=== PATIENT | female | born 1980 | race Caucasian/White ===

== ENCOUNTER → 2017-04-11 17:47 | Outpatient (CLI) | payer BC, SELFPAY ==
[2017-04-11 17:50] LABS: Bacteria 0 SEEN /hpf (None Seen); Mucous, Urine 0 SEEN /hpf (<or=2+); Red Blood Cells-Urine 0 SEEN /hpf (0-5); Squamous Epithelial Cells - UA 0 SEEN /hpf (5-10)
[2017-04-11 18:27] LABS: Color, Urine Yellow (Yellow); Glucose, Dipstick Normal (Normal); Ketone-Dipstick Negative (Negative); Leukocyte Esterase-Dipstick 25 /ul (Negative); Nitrite-Dipstick Negative (Negative); Occult Blood-Urine Negative /ul (Negative); Protein-Dipstick Negative (Negative); Urine Bilirubin Dipstick Negative (Negative); Urine Clarity Clear (Clear); Urine Urobilinogen Normal (Normal)
[2017-04-11 19:05] LABS: White Blood Cells 0-5 SEEN /hpf (0-5)
== END ==
PROVIDERS: Family Provider Family Medicine; PCP Family Medicine; Visit Provider Physician Assistant Surgical
DX: R35.0 Frequency of micturition (principal)
CPT/HCPCS: 81001; 87086; 87088

== ENCOUNTER → 2017-05-01 13:56 | Outpatient (CLI) | payer BC, SELFPAY ==
--- NOTE | 2017-05-01 14:02 | US_ITS ---
US Kidney(s) complete (eg, kidneys T bladder) INDICATION: abd pain, HX of stones COMPARISON: None TECHNIQUE: Ultrasonographic grayscale and Doppler investigation of the retroperitoneum including kidneys and urinary bladder FINDINGS: The right kidney measures 13.1 x 5.9 x 4.5 cm with a 1.5 cm cortical thickness. There is no evidence of hydronephrosis, mass, or shadowing calculus. The left kidney measures 13.3 x 5.7 x 5.4 cm with a cortical thickness of 1.8 cm. There is no evidence of hydronephrosis, mass, or shadowing calculus. The urinary bladder is distended and measures 450 mL at the time of the scan. Urinary bladder wall is within normal limits. US/Kidney and Bladder IMPRESSION: Unremarkable ultrasound appearance of the kidneys. No renal stones appreciated ultrasound. Distended urinary bladder (450 mL) at the time of the exam. at 1819 Reported and signed by: Alejandra Csatelan MD Electronically Signed: Alejandra Castelan MD at 17:17 EST Tel , Service support ,
== END ==
PROVIDERS: Family Provider Family Medicine; PCP Family Medicine; Visit Provider Nurse Practitioner Adult Health
DX: R10.9 Unspecified abdominal pain (principal); Z87.442 Personal history of urinary calculi
CPT/HCPCS: 76770

== ENCOUNTER → 2017-09-03 13:00 | Outpatient (CLI) | payer BC, SELFPAY ==
--- NOTE | 2017-09-03 13:15 | RAD_ITS ---
CLINICAL HISTORY: Female, 36 years old. Frequent UTIs. PROCEDURE: Cystogram. FLUOROSCOPY TIME (if supplied): (0:26) minutes/seconds 200 mL of contrast installed into the bladder in a retrograde fashion through indwelling Fernandez catheter. The radiologist installed the contrast into the bladder. TECHNIQUE: (All elements of maximal sterile barrier technique followed, including US elements as applicable) The bladder was opacified. No abnormality is seen. There is no evidence of bladder diverticulum. No post void residual is seen. RAD/Cystography min 3 Views IMPRESSION: Unremarkable cystogram. Electronically Signed: Wagner Bell MD at 15:25 EDT Tel [phone], Service support ,
== END ==
PROVIDERS: Family Provider Family Medicine; PCP Family Medicine; Visit Provider Urology
DX: N39.0 Urinary tract infection, site not specified (principal)
CPT/HCPCS: 51600; 74430; Q9965

== ENCOUNTER 2017-10-07 05:50 | Day surgery (SDC) | payer BC, SELFPAY ==
[2017-10-07 06:10] VITALS: BP 126/80; PULSE 90; RESP 16; TEMP 36.8; O2SAT 100; BMI 31.7
[2017-10-07 06:16] LABS: Internal QC Validated? YES +Cl - CLEAR BKGD; Pregnancy, Urine Negative Negative
[2017-10-07 08:28] VITALS: BP 122/91; BP 126/80; PULSE 88; RESP 16; TEMP 36.6; O2SAT 100
[2017-10-07 08:30] VITALS: BP 119/85; BP 126/80; PULSE 89; RESP 16; O2SAT 99
[2017-10-07 08:42] VITALS: BP 120/79; BP 126/80; PULSE 86; RESP 16; TEMP 36.8; O2SAT 100
--- NOTE | 2017-10-07 08:48 | PCM.DC.URO ---
Discharge Diet: No Restrictions Discharge Activity: Return to Normal Activity, May not drive while taking narcotic pain medications. Call your doctor if you observe: Fever of 101 or Higher, Inability to urinate, Inability to have a bowel movement, Shortness of breath, Calf discomfort, Uncontrolled pain Allergies/Adverse Reactions: Allergies latex Allergy (Verified 09/30/17 10:53) Rash Medications to take at Discharge Ethinyl Estradiol/Drospirenone [Shikha 28 Tablet] 1 each PO DAILY 09/30/17 Methen/Sod Phos/Meth Blue/Hyos [Pn-Lzvyrc-Da-Hyo 1 Tablet] 1 tablet PO DAILY 09/30/17 Oxycodone HCl/Acetaminophen [Percocet 5/325] 2 tab PO Q6H PRN PRN 3 Days #10 tab 10/07/17 The following prescriptions were given: Oxycodone HCl/Acetaminophen [Percocet 5/325] 2 tab PO Q6H PRN PRN 3 Days #10 tab PRN Reason: Pain Primary Care Physician: Noah Avery MD [Primary Care Provider] - Test Results: Test results from this visit will be discussed in further detail at your follow-up appointment, if applicable. Please Follow Up With: Chaya Lucas MD - in 2 weeks, call for appt.
[2017-10-07 09:48] VITALS: BP 126/80
--- NOTE | 2017-10-07 10:09 | PCM.IMDPSTOP ---
Immediate Post-Op Note Date of Procedure: 10/07/17 Primary Surgeon/Physician: Chaya Lucas MD track service worker: Chaya Lucas Pre-Operative Diagnosis: urinary tract infection, pelvic pain Post-Operative Diagnosis: same Surgery/Procedure Performed:: cystoscopy, pelvic exam under anesthesia Description of Surgical Findings:: no ulcers, erythema, mass, foreign body. Capacity 800cc. No glomerulations. Normal pelvic exam. Estimated Blood Loss: 1cc Specimen's removed: none - Admit VTE Documentation VTE Present on Admission: Yes VTE Mechan Device Prophylaxis: SCD's VTE Pharm Prophylaxis ordered?: No Reason prophylaxis not ordered:: Treatment Not Indicated
--- NOTE | 2017-10-07 11:16 | PCM.OPRPT ---
Problem List (1) Pelvic pain Status: Acute (2) UTI (urinary tract infection) Status: Acute Qualifiers: Urinary tract infection type: acute cystitis Hematuria presence: with hematuria Qualified Code(s): N30.01 - Acute cystitis with hematuria Report of Operation Date of Procedure: 10/07/17 Pre-Operative Diagnosis: urinary tract infection, pelvic pain Post-Operative Diagnosis: same Surgery/Procedure Performed:: cystoscopy, pelvic exam under anesthesia Description of Surgical Findings:: no ulcers, erythema, mass, foreign body. Capacity 800cc. No glomerulations. Normal pelvic exam. bark tanner: Chaya Lucas Type of Anesthesia:: General Specimen's removed: none Estimated Blood Loss (mL): 1cc Description of Procedure: Patient is a 36-year-old female with severe bladder pain and urinary tract infections. After discussing the risks benefits and alternatives she agreed to proceed with further evaluation under anesthesia. Patient was taken to the operating room and placed on the operating room table anesthesia monitored the head neck area IV access and vital signs throughout the case. Once anesthesia was appropriately administered patient was placed into dorsal lithotomy position was prepped and draped in usual sterile fashion. A cystourethroscopy was then performed revealing no mass, erythema, ulceration or foreign body. The ureteral orifices were located in the correct anatomic position. The bladder was filled to capacity which was determined to be 800 cc. There were no glomerulations identified. On pelvic examination there was no prolapse identified. Her vaginal mucosa is well estrogenized. The levator musculature is somewhat tight left greater than right but with her being asleep but is difficult to tell if this is symptomatic or not. She was then awakened and taken to recovery room in good condition. There are no complications during this procedure. - Complications none - Admit VTE Documentation VTE Present on Admission: Yes VTE Mechan Device Prophylaxis: SCD's VTE Pharm Prophylaxis ordered?: No Reason prophylaxis not ordered:: Procedure Not Indicated
== END 2017-10-07 09:53 | disposition home or self-care (01) ==
LOC: SDC 05:51 → AC 05:52
PROVIDERS: Anesthesiology; Family Provider Family Medicine; PCP Family Medicine; Visit Provider Urology
PROC: 0TBB8ZX Excision of Bladder, Via Natural or Artificial Opening Endoscopic, Diagnostic (ICD-10-PCS; CPT 57410; principal; 2017-10-07 07:20)
DX: R10.2 Pelvic and perineal pain (principal); N30.01 Acute cystitis with hematuria
CPT/HCPCS: 00940; 57410; 81025; J7120; J2405

== ENCOUNTER 2018-05-16 21:09 | Inpatient (IN) | payer BC, SELFPAY ==
[2018-05-16] VITALS (8 sets, daily range): BP systolic 123–152; BP diastolic 71–96; PULSE 108–132; RESP 16–28; TEMP 36.8–37.4; O2SAT 96–100; BMI 31.9
[2018-05-16 22:21] LABS: Absolute Lymphocyte Count 1.87 X10^3/ul (0.83-4.51); Absolute Neutrophil Count 15.5 X10^3/uL (2.0-7.7); Basophil# 0.05 X10^3/uL; Basophil% 0.3 % (0-1); Eosinophil# 0.55 X10^3/uL; Eosinophils% 2.9 % (0-5); Hematocrit 41.1 % (37-47); Lymphocyte # 1.87 X10^3/ul (4.0); Lymphocyte % 9.9 % (19-41); Mean Corp Hgb Conc 34.1 g/gl (32-36); Mean Corpuscular Hgb 29.7 pg (27.0-32.0); Mean Corpuscular Volume 87.3 fL (81-99); Mean Platelet Vol. 9.9 fl (6.2-12.0); Monocyte# 0.98 X10^3/uL; Monocyte% 5.2 % (0-10); Neutrophil # 15.48 X10^3/uL (2.7-7.7); Neutrophil % 81.4 % (47-70); POSITIVE COUNT NO; POSITIVE DIFFERENTIAL NO; POSITIVE MORPHOLOGY NO; Platelet Count 239 K/mm3 (150-450); RBC Distribution Width CV 13.1 % (11.6-14.6); Red Blood Count 4.71 M/mm3 (4.2-5.4)
[2018-05-16 22:30] LABS: Anion Gap 9 (5-15); BUN 10 mg/dL (7-18); BUN/Creat Ratio 14.6 RATIO (10-20); Calcium,Total 8.4 mg/dL (8.5-10.1); Chloride 104 mmol/L (98-107); Creatinine, Serum 0.68 mg/dL (0.55-1.02); EST Glomerular Filtration Rate 103 mL/min (>60); Est Glom Filt Rate - Afr Amer 124 mL/min (>60); Estimated Creatinine Clearance 114.27 ml/min; Glucose 97 mg/dL (74-106); Potassium 3.3 mmol/L (3.5-5.1); Sodium Level 136 mmol/L (136-145)
[2018-05-16] MEDS: 0.9% Normal Saline 1,000 ML 1000 ML IV (22:30)
--- NOTE | 2018-05-16 22:52 | ED.DCSUM_ITS ---
History of Present Illness Chief Complaint: Abscess Detail of Chief Complaint: Right inguinal/labia region Informant: Patient Onset: Weeks - Redness noted 1 week ago. Patient thought it was secondary to razor burn from shaving. Context: Gradual Onset Timing: Continuous Quality: Redness, swelling and pain Location: Right groin region Current Severity: Moderate Maximum Severity: Moderate Worsened by: Probable abscess Relieved by: Nothing Associated Symptoms: Subjective fever with shaking chills and diaphoresis Narrative: Patient is a 37-year-old woman with no sniffing past medical history presents with infection right groin area. She thought this was a razor burn from shaving a week ago. She reports fever with shaking chills and diaphoresis morning. She did not take her temperature. She reports no antibiotic allergies. She has not had any to eat or drink the last 3-4 hours. She denies a traumatic fever, murmur as an adult, SPE, IV drug use or being immune suppressed. She states she had a murmur when she was a child and outgrew it. She denies dysuria, frequency, urgency or hematuria. She denies headache, photophobia, neck pain or neck stiffness. She denies shortness of breath. She does report nausea without vomiting diarrhea. Prior similar symptoms: No Recent Illness/Hospitalization: No - Past Medical History (1) Pelvic pain Status: Chronic (2) UTI (urinary tract infection) Status: Resolved Past Medical History - Allergies and Home Meds Allergies/Adverse Reactions: Allergies latex Allergy (Verified 05/16/18 21:10) Rash Primary Care Physician: Noah Avery MD [Primary Care Provider] - Prior records reviewed: Yes - Latex allergy Lives: Spouse/ Significant Other Smoking Status: Never smoker Alcohol: Rare Review of Systems General: Reports: Chills, Fever, Malaise, Subjective, Sweats. Denies: Weight loss Eyes: Denies: Visual changes - bilaterally, Blurred Vision - bilaterally, Diplopia ENT: Denies: Bilateral ear pain, Rhinorrhea, Sore throat Cardiovascular: Reports: Heart racing. Denies: Chest pain, Palpitations Respiratory: Denies: Dyspnea, Cough, Dyspnea on exertion Gastrointestinal: Denies: Abdominal pain, Nausea, Vomiting, Diarrhea, Melena, Hematochezia Genitourinary: Denies: Dysuria, Hematuria, Frequency Musculoskeletal: Reports: Myalgias. Denies: Arthralgias, Neck pain, Back pain, Extremity Pain Skin: Reports: Rash, Abscess Neurological: Denies: Headache, Weakness, Numbness Hematologic: Denies: Easy bruising, Easy bleeding Allergy: Denies: Uticaria, Swelling of the mouth, Swelling of the tongue Physical Exam Vital Signs/Narrative: Vital Signs Temp Pulse Resp BP Pulse Ox 05/16/18 22:17 119 H 05/16/18 21:10 98.3 F 126 H 16 152/92 H 98 Inital Vital Signs reviewed: Yes General: Well nourished, Well developed, No Acute Distress Head: Normocephalic, Atraumatic. Negative for: Trauma, Tenderness Eyes: Perrl, EOMI. Negative for: Pale conjunctiva, Scleral icterus ENT: Moist mucous membranes, No rhinorrhea. Negative for: TM's clear Neck: Supple, Nontender, No lymphadenopathy, No JVD Cardiovascular: Regular rhythm, No murmurs, Normal S1, Normal S2, Tachycardia Respiratory: No distress, CTA bilaterally, Chest nontender Abdomen: Soft, Nontender, Nondistended, Normal bowel sounds Back: Nontender, Normal Inspection Extremities: No edema, Tenderness Skin: Normal color, Rash. Negative for: Diaphoresis Neurological: Alert, Oriented x3, Cranial nerves II-XII grossly intact, Normal Strength, Normal Sensation Psychological: Normal affect, Normal Mood Diagnostic/Tx/Re-eval - Medical Decision Making Patient has a significant area of cellulitis above the inguinal crease on the right side involving the labia majora extending to the perineal region. There is erythema, warmth and induration. Question of fluctuance. Ultrasound indicated small fluid collection. Needle aspirate was performed and aspirated 2 cc of brown thick purulent material. Patient was informed that she would need incision and drainage of the abscess. She also was informed because of the extent of the area and the fact that she is tachycardic will obtain blood work because of concern that she will need admission to the hospital. If lactate is elevated will obtain blood cultures prior to antibiotics. Lactate is normal. She will receive 1 g of Rocephin IV piggyback. Her railroad construction director Dr. Italia Key was paged for admission Procedures Procedure(s): 1. Needle aspiration of abscess using ultrasound, 2.0 cc brown thick purulent material. 2. Patient was prepped draped sterile manner for incision and drainage of abscess. Patient was informed prior to starting the procedure if the procedure was too painful would sedate with IV anesthetic i.e. propofol. She was explained risk benefits of propofol. She was given opportunity ask questions regarding the I&D with local versus deep sedation using propofol. Her questions were answered. 3. The area was prepped draped sterile manner. Local infiltration with 4 cc of lidocaine. Incision was made. There is free flow of purulent material. Patient had significant pain and had to abort blunt dissection because of pain. She requested IV anesthetic, propofol. 4. Patient was administered a total of 200 cc of propofol. Blunt dissection was undertaken. The cavity was irrigated. Wick was placed. 5. Total time for procedure 9 minutes ED Disposition - Plan for ED Patient: Disposition: Acute Care Hospital [facility] Diagnosis: Abscess or cellulitis of groin, Sepsis Referrals: Noah Avery MD [Primary Care Provider] -
[2018-05-16 22:56] LABS: Lactic Acid 0.8 mmol/L (0.4-2.0)
[2018-05-16] MEDS: Propofol 200 MG/20 ML Vial IV BOLUS (23:03)
[2018-05-16] MEDS: HYDROmorphone 0.5 MG/0.5 ML SYRINGE IV (23:32)
[2018-05-16] MEDS: Ondansetron 4 MG/2 ML Vial IV (23:32)
[2018-05-16] MEDS: Ceftriaxone 1 GM/50 ML BAG IV (23:32)
--- NOTE | 2018-05-16 23:43 | HP.PCM_ITS ---
History and Physical Date of Admission: 05/16/18 Brooke Magana is a 36 yo,G-3 P-3 female who presented to [facility] Emergency Dept with CC of vulvar pain and an infection in the right groin area . She has had a fever and shaking chills this morning. She thought she had just injured herself shaving, but was found on the exam in the Emergency Department to have a cellulitis of the groin with fluctuance and had an Incision and drainage with wick placement. Cultures were obtained. Brooke is admitted for IV a ntibiotics and observation. ALLERGIES: Latex, Rash, Poison Alka Extract and Rash MEDICATIONS HISTORY: Current medications prescribed by our practice are: 1. None. REVIEW OF SYSTEMS: GENERAL - Denies fever, or chills SKIN - Denies skin changes EYES - Denies visual changes EARS - Denies difficulty hearing NOSE - Denies nasal congestion or bleeding MOUTH - Denies sore throat or difficulty swallowing NECK - Denies pain or swelling RESPIRATORY - Denies shortness of breath or wheezing CARDIOVASCULAR - Denies palpitations or chest pain GASTROINTESTINAL - Denies nausea, vomiting, diarrhea, constipation GENITOURINARY - pelvic pain MUSCULOSKELETAL - Denies joint or muscle pain NEUROLOGICAL - Denies localized numbness or weakness PSYCHIATRIC - Denies depression or anxiety ENDOCRINE - Denies heat or cold intolerance, weight loss or gain HEMATO-IMMUNOLOGIC - Denies excesive bleeding with cuts PAST HISTORY: Breast/Ovarian/Colon Cancers - Mother had Colon Cancer approximately age 50-60 Infections - Chicken pox Illnesses - none Accidents - None History of Abnormal PAPS - first noted more than 10 years ago-- YES Hospitalizations - Childbirth and see surgery last pap 2012; SURGICAL HISTORY: 1. 04/24/2016 Italia Key M.D. 2. [place] Teeth Removal 3. 2009 4. 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 Resp 22 Weight- 95.25 Kg. CONSTITUTIONAL - NAD, well nourished, and well developed HEENT - Normocephalic, PERRLA, EOMI NECK - no nuchal rigidity BREAST -deferred EXTREMITIES - No edema or calf tenderness NEUROLOGICAL - Cranial nerves II-XII grossly intact PSYCHIATRIC - A and O to time, place, person, mood and affect PELVIC EXAM at admission per Dr Lalo Mccain: significant area of cellulitis above the inguinal crease on the right side involving the labia majora extending to the perineal region. There is erythema, warmth and induration. LABS: Hgb wnl. WBC 19,000. Lactic acid normal. ASSESSMENT: 1. Cellulitis/Abscess of the right groin PLAN BY DIAGNOSIS: 1. Cellulitis of the groin S/P incision and drainage in ED under sedation and local anesthetic, with wick placement. Culture sent Rocephin 1 gm IV given in ED Admit for IV fluids, IV antibiotics. Vancomycin (MRSA coverage) and Unasyn for groin cellulitis. Antibiotic adjustment prn based on cultures and clinical response
[2018-05-17 00:31] VITALS: BMI 31.8; BMI 31.9
[2018-05-17 00:44] VITALS: BP 134/70; PULSE 115; RESP 20; TEMP 37.7; O2SAT 98
[2018-05-17] MEDS: Naproxen 250 MG Tablet PO ×2 (01:09→14:33)
[2018-05-17] MEDS: Zolpidem Tartrate 5 MG Tablet ORAL ×2 (01:09→21:50)
[2018-05-17] MEDS: Lactated Ringers 1,000 ML 150 ML IV ×3 (01:10→21:51)
--- NOTE | 2018-05-17 02:03 | PCM.RX.CS ---
Consult Pharmacy has been consulted to manage selected antiobiotic: Vancomycin Type of Consult: New start Suspected Infection: Skin/Soft tissue Prior Doses of Antibiotics Received/Current Regimen: Medications Vancomycin HCl 1,500 mg/ (Sodium Chloride) 530 mls @ 250 mls/hr IV Q12H HUEY Vancomycin HCl 1,500 mg/ (Sodium Chloride) 530 mls @ 250 mls/hr IV X1 ONE Stop: 05/17/18 03:07 Last Admin: 05/17/18 01:54 Dose: 250 mls/hr Labs: Sodium 136 mmol/L (136-145) 05/16/18 22:08 Potassium 3.3 mmol/L (3.5-5.1) L 05/16/18 22:08 Chloride 104 mmol/L (98-107) 05/16/18 22:08 Carbon Dioxide 23.0 mmol/L (21.0-32.0) 05/16/18 22:08 Anion Gap 9 (5-15) 05/16/18 22:08 BUN 10 mg/dL (7-18) 05/16/18 22:08 Creatinine 0.68 mg/dL (0.55-1.02) 05/16/18 22:08 Est GFR (MDRD) Af Amer 124 mL/min (>60) 05/16/18 22:08 Est GFR (MDRD) Non-Af 103 mL/min (>60) 05/16/18 22:08 BUN/Creatinine Ratio 14.6 RATIO (10-20) 05/16/18 22:08 Glucose 97 mg/dL (74-106) 05/16/18 22:08 Weight used for dosin.2 kg Estimated Creatinine Clearance: 114 Goal Trough: 10-15 mcg/mL Pharmacy Plan for Drug Dosing: Pharmacy Service will continue to monitor and adjust dosing as required. Follow-Up Labs: Trough Vancomycin Labs to be done on [date and time ordered]: 05/18/18 @1330
[2018-05-17 04:20] VITALS: BP 111/58; PULSE 114; RESP 18; TEMP 37.2; O2SAT 96
[2018-05-17 06:23] LABS: Absolute Lymphocyte Count 1.41 X10^3/ul (0.83-4.51); Absolute Neutrophil Count 13.5 X10^3/uL (2.0-7.7); Basophil# 0.02 X10^3/uL; Basophil% 0.1 % (0-1); Eosinophil# 0.34 X10^3/uL; Eosinophils% 2.1 % (0-5); Hematocrit 36.3 % (37-47); Hemoglobin 12.3 g/dl (12.0-15.0); Lymphocyte # 1.41 X10^3/ul (4.0); Lymphocyte % 8.6 % (19-41); Mean Corp Hgb Conc 33.9 g/gl (32-36); Mean Corpuscular Hgb 29.9 pg (27.0-32.0); Mean Corpuscular Volume 88.1 fL (81-99); Mean Platelet Vol. 9.8 fl (6.2-12.0); Monocyte# 1.12 X10^3/uL; Monocyte% 6.8 % (0-10); Neutrophil # 13.52 X10^3/uL (2.7-7.7); Neutrophil % 82.3 % (47-70); Platelet Count 201 K/mm3 (150-450); RBC Distribution Width CV 13.3 % (11.6-14.6); Red Blood Count 4.12 M/mm3 (4.2-5.4); White Blood Count 16.4 K/mm3 (4.4-11.0)
[2018-05-17 06:27] LABS: POSITIVE COUNT NO; POSITIVE DIFFERENTIAL NO; POSITIVE MORPHOLOGY NO
--- NOTE | 2018-05-17 07:10 | PN_ITS ---
Patient Problems: Active and Suspected Problems (Last Reviewed 04/30/17 @ 13:40 by Yana Goncalves) Abscess or cellulitis of groin (Acute) Sepsis (Acute) Subjective: HD#1 R groin abscess, S/P I and D of R labial abscess. Cellulitis, mild sepsis Doing OK. Still with feeling of a lot of pelvic pressure at R groin, interm ittent sharp/stabbing pain and sensation of heaviness in area. States her daughter had a MRSA lesion on her back a few months ago. Asking about potential MRSA - Physical Exam General: Alert, Oriented x3, Cooperative, No apparent distress HEENT: Atraumatic Neck: Supple Skin: Incision - wick in place. marked erythema and induration noted. Erythema less than the area marked last night with pen Psych/Mental Status: Normal Affect, Appropriate Vital Signs Temp Pulse Resp BP Pulse Ox 99 F 114 H 18 111/58 L 96 05/17/18 04:20 05/17/18 04:20 05/17/18 04:20 05/17/18 04:20 05/17/18 04:20 Oxygen Flow Rate (L/min) [6] 2 Oxygen Flow Rate (L/min) [4] 2 Oxygen Flow Rate (L/min) [3] 2 Oxygen Flow Rate (L/min) [1 ( 2 Initial Baseline)] Oxygen Flow Rate (L/min) 2 Oxygen Delivery Method [6] Nasal Cannula Oxygen Delivery Method [5] Nasal Cannula Oxygen Delivery Method [4] Nasal Cannula Oxygen Delivery Method [3] Nasal Cannula Oxygen Delivery Method [1 ( Nasal Cannula Initial Baseline)] Oxygen Delivery Method Room Air Weight: 95.2 kg Body Mass Index (BMI) 31.8 Intake and Output for Last 24 Hours 05/15/18 05/16/18 05/17/18 23:59 23:59 23:59 Intake Total 1130 / 1130 Balance 1130 / 1130 Laboratory Tests Past 24 Hrs 05/16/18 05/16/18 05/16/18 22:08 22:08 22:08 WBC 19.0 H RBC 4.71 Hgb 14.0 Hct 41.1 MCV 87.3 MCH 29.7 MCHC 34.1 RDW 13.1 RDW Differential 42.0 Plt Count 239 MPV 9.9 Immature Gran % (Auto) 0.300 Neut % (Auto) 81.4 H Lymph % (Auto) 9.9 L [place] % (Auto) 5.2 Eos % (Auto) 2.9 Baso % (Auto) 0.3 Absolute Neuts (auto) 15.5 H Absolute Lymphs (auto) 1.87 Total Counted Not Reportable Sodium 136 Potassium 3.3 L Chloride 104 Carbon Dioxide 23.0 Anion Gap 9 BUN 10 Creatinine 0.68 Estim Creat Clear Calc 114.27 Est GFR (MDRD) Af Amer 124 Est GFR (MDRD) Non-Af 103 BUN/Creatinine Ratio 14.6 Glucose 97 Lactic Acid 0.8 Calcium 8.4 L 05/17/18 06:09 WBC 16.4 H RBC 4.12 L Hgb 12.3 Hct 36.3 L MCV 88.1 MCH 29.9 MCHC 33.9 RDW 13.3 RDW Differential 43.0 Plt Count 201 MPV 9.8 Immature Gran % (Auto) 0.100 Neut % (Auto) 82.3 H Lymph % (Auto) 8.6 L [place] % (Auto) 6.8 Eos % (Auto) 2.1 Baso % (Auto) 0.1 Absolute Neuts (auto) 13.5 H Absolute Lymphs (auto) 1.41 Total Counted Not Reportable Sodium Potassium Chloride Carbon Dioxide Anion Gap BUN Creatinine Estim Creat Clear Calc Est GFR (MDRD) Af Amer Est GFR (MDRD) Non-Af BUN/Creatinine Ratio Glucose Lactic Acid Calcium Medical Necessity - Tobacco Use Smoking Status: Never smoker Assessment/Plan All Active Problems (Last Reviewed 04/30/17 @ 13:40 by Yana Goncalves) Abscess or cellulitis of groin (Acute) Sepsis (Acute) Maxillary sinusitis (Acute) Otitis media, left (Acute) UTI (urinary tract infection) (Resolved) HD#1 Cellulitis of R groin. S/P I and D of R labial abscess with wick in place. Erythema no longer extending to margins of ink collins placed last night WBCs improved. Clinically improved , less extensive erythema. Pt started last night on empiric Vancomycin given extent of lesion. Stated to RN last night to me this am : H/O MRSA in family. Unasyn 1.5 gm IV q 6 hr also Add additional pain meds for prn use. Continue IV antibiotics today. Dressing change PRN. Await culture results. Advised not to shave. May clipper trim, or consider waxing. Inc risk of skin infections with shaving and strongly discourage this practive. Continue care.
[2018-05-17] MEDS: oxyCODONE 5 MG Tablet PO ×3 (09:36→21:49)
[2018-05-17 10:39] VITALS: BP 110/62; PULSE 112; RESP 18; TEMP 37.3; O2SAT 98
[2018-05-17 14:29] VITALS: BP 118/81; PULSE 117; RESP 18; TEMP 36.8; O2SAT 95
[2018-05-17] MEDS: Senna/Docusate Sodium 1 Tablet PO (15:48)
[2018-05-17 20:31] VITALS: BP 114/68; PULSE 108; RESP 16; TEMP 37.7; O2SAT 98
[2018-05-18 02:06] VITALS: BP 107/66; PULSE 99; RESP 18; TEMP 37.6; O2SAT 95
[2018-05-18] MEDS: Acetaminophen 500 MG Tablet PO ×2 (05:28→14:12)
[2018-05-18] MEDS: oxyCODONE 5 MG Tablet PO ×3 (05:29→18:20)
[2018-05-18 06:14] LABS: Anion Gap 6 (5-15); BUN 6 mg/dL (7-18); BUN/Creat Ratio 11.3 RATIO (10-20); Calcium,Total 7.4 mg/dL (8.5-10.1); Chloride 110 mmol/L (98-107); Creatinine, Serum 0.53 mg/dL (0.55-1.02); EST Glomerular Filtration Rate 138 mL/min (>60); Est Glom Filt Rate - Afr Amer 167 mL/min (>60); Glucose 107 mg/dL (74-106); Potassium 3.8 mmol/L (3.5-5.1); Sodium Level 137 mmol/L (136-145)
[2018-05-18 08:00] VITALS: BP 117/68; PULSE 95; RESP 14; TEMP 36.7; O2SAT 97
--- NOTE | 2018-05-18 08:18 | CT_ITS ---
STUDY: CT PELVIS WITHOUT CONTRAST REASON FOR EXAM: Female, 37 years old. Cellulitis/abscess involving the right labia. RADIATION DOSAGE (If Supplied By Facility): CTDIvol = ( 14.51 ) mGy, DLP = ( 570.36 ) mGycm TECHNIQUE: Transaxial imaging of the pelvis was performed with oral contrast, and without intravenous administration of contrast material. Individualized dose optimization techniques were used for this CT. COMPARISON: None. FINDINGS: There is evidence of a prior incision of the right side of the mons pubis extending into the right labia majora. Increased markings are seen in the subcutaneous fat with overlying skin thickening suggestive of a cellulitis. This extends into the medial aspect of the proximal right thigh. No focal abscess is seen. There is evidence of small bilateral benign-appearing inguinal lymph nodes. Normal urinary bladder. There is evidence of a 6 cm x 6.5 cm x 7.4 cm rounded hypodensity arising from the fundal portion of uterus on the right side suggestive of a pedunculated fibroid. Normal visualized small intestine. Normal visualized colon. There is no pelvic fluid. There is no pelvic mass lesion or lymphadenopathy. Normal visualized pelvic arteries. Small umbilical hernia containing fat. Normal osseous structures. CT/Pelvis without IV Contrast IMPRESSION: Findings suggestive of a cellulitis involving the right side of the mons pubis extending into the right labia majora and medial aspect of the proximal right thigh. Pedunculated fibroid involving the fundal portion of the uterus. Small benign-appearing bilateral inguinal lymph nodes. Electronically Signed: Wagner Bell, at 9:15 EDT , Service support ,
--- NOTE | 2018-05-18 08:23 | PCM.PROGNOTE ---
Patient Problems: Active and Suspected Problems (Last Reviewed 04/30/17 @ 13:40 by Yana Goncalves) Abscess or cellulitis of groin (Acute) Sepsis (Acute) Subjective: HD#2 R labial abscess S/P I and D. Cellulitis of groin Sharp stabby pain is gone. Still with heavy sensation, pressure R labia posterior labia Tolerating diet well Pain control adequate. - Physical Exam General: Alert, Oriented x3, Cooperative, No apparent distress HEENT: Atraumatic Neck: Supple Skin: Incision - I and D incision with purulent drainage on wick. Wick removed for dressing change. Increased erythema/cellulitis at R inner thigh New area marked. R labia indurated, edematous, erythematous Psych/Mental Status: Normal Affect, Appropriate Vital Signs Temp Pulse Resp BP Pulse Ox 98.1 F 95 14 117/68 97 05/18/18 08:00 05/18/18 08:00 05/18/18 08:00 05/18/18 08:00 05/18/18 08:00 Oxygen Flow Rate (L/min) [6] 2 Oxygen Flow Rate (L/min) [4] 2 Oxygen Flow Rate (L/min) [3] 2 Oxygen Flow Rate (L/min) [1 ( 2 Initial Baseline)] Oxygen Flow Rate (L/min) 2 Oxygen Delivery Method [6] Nasal Cannula Oxygen Delivery Method [5] Nasal Cannula Oxygen Delivery Method [4] Nasal Cannula Oxygen Delivery Method [3] Nasal Cannula Oxygen Delivery Method [1 ( Nasal Cannula Initial Baseline)] Oxygen Delivery Method Room Air Weight: 95.2 kg Body Mass Index (BMI) 31.8 Intake and Output for Last 24 Hours 05/16/18 05/17/18 05/18/18 23:59 23:59 23:59 Intake Total 5812 / 5812 1065 / 1065 Balance 5812 / 5812 1065 / 1065 Microbiology Past 72 Hours 05/16/18 21:45 Gram Stain - Final Wound Abcess - Pelvic Wound Culture - Final Meth. resistant Staph. aureus Laboratory Tests Past 24 Hrs 05/18/18 05:34 Sodium 137 Potassium 3.8 Chloride 110 H Carbon Dioxide 21.0 Anion Gap 6 BUN 6 L Creatinine 0.53 L Estim Creat Clear Calc 146.60 Est GFR (MDRD) Af Amer 167 Est GFR (MDRD) Non-Af 138 BUN/Creatinine Ratio 11.3 Glucose 107 H Calcium 7.4 L Medical Necessity - Tobacco Use Smoking Status: Never smoker Assessment/Plan All Active Problems (Last Reviewed 04/30/17 @ 13:40 by Yana Goncalves) Abscess or cellulitis of groin (Acute) Sepsis (Acute) Maxillary sinusitis (Acute) Otitis media, left (Acute) UTI (urinary tract infection) (Resolved) HD#2 Cellulitis of R groin. S/P I and D of R labial abscess with wick in place. New erythema extending to R inner thigh. I and D incision with persistent purulent drainage. Labia on R edematous, indurated. MRSA positive culture. Continue Vancomycin Unasyn 1.5 gm IV q 6 hr also pain med prn -- CONSULT wound care -- CT of abscess, cellulitis MADDIE Continue care.
[2018-05-18] MEDS: Lactated Ringers 1,000 ML 150 ML IV ×2 (08:24→21:24)
--- NOTE | 2018-05-18 10:27 | NURSING ---
wound photo: mons pubis s/p I&D
[2018-05-18] MEDS: Ondansetron ODT 4 MG Tablet PO (11:06)
[2018-05-18] MEDS: 0.9% NaCl Peripheral Flush Adult/Peds IV ×2 (12:04→18:20)
--- NOTE | 2018-05-18 13:25 | PCM.RX.CS ---
Consult Pharmacy has been consulted to manage selected antiobiotic: Vancomycin Type of Consult: Follow-up Suspected Infection: Skin/Soft tissue Prior Doses of Antibiotics Received/Current Regimen: Vancomycin 1500mg IV x1 at 0154 on 05/17/18 in the ER, and Vancomycin 1500mg IV x2 doses on MS3. Labs: Sodium 137 mmol/L (136-145) 05/18/18 05:34 Potassium 3.8 mmol/L (3.5-5.1) 05/18/18 05:34 Chloride 110 mmol/L (98-107) H 05/18/18 05:34 Carbon Dioxide 21.0 mmol/L (21.0-32.0) 05/18/18 05:34 Anion Gap 6 (5-15) 05/18/18 05:34 BUN 6 mg/dL (7-18) L 05/18/18 05:34 Creatinine 0.53 mg/dL (0.55-1.02) L 05/18/18 05:34 Est GFR (MDRD) Af Amer 167 mL/min (>60) 05/18/18 05:34 Est GFR (MDRD) Non-Af 138 mL/min (>60) 05/18/18 05:34 BUN/Creatinine Ratio 11.3 RATIO (10-20) 05/18/18 05:34 Glucose 107 mg/dL (74-106) H 05/18/18 05:34 Microbiology: Microbiology 05/16/18 21:45 Wound Abcess - Pelvic Gram Stain - Final 05/16/18 21:45 Wound Abcess - Pelvic Wound Culture - Final Meth. resistant Staph. aureus Weight used for dosin.2 kg Estimated Creatinine Clearance: 146ml/min Goal Trough: 15-20 mcg/mL Pharmacy Plan for Drug Dosing: Goal Trough increased to 15-[address] Key. Vancomycin dose changed from 1500mg IV q12h to Vancomycin 1500mg q8h starting 05/18/18 at 1400. Pharmacy Service will continue to monitor and adjust dosing as required. Follow-Up Labs: Trough Vancomycin - trough Labs to be done on [date and time ordered]: trough level 05/18/18 at 1900
[2018-05-18 14:10] VITALS: BP 112/75; PULSE 94; RESP 16; TEMP 37.2; O2SAT 100
--- NOTE | 2018-05-18 14:10 | CASEMGMT ---
RN ANIA Face to Face with patient for initial transition planning/care coordination assessment. RN CM introduced self and role at [facility]. Patient lying in bed, alert and oriented. Patient willing to participate in assessment and is able to answer all questions appropriately. Care providers, pharmacy, and demographics verified. Patient wishes to discharge home, denies need for home health at this time. Patient states she has no further needs or concerns at this time. CM to follow for discharge planning needs that may arise. PCP: Gena Specialists: ELIGIO Key Pharmacy: [facility] Insurance: [place] Prescription Benefit: Yes Living Will/HPOA: None LNOK: , daughter Living Arrangements: Patient lives with family in 1 story home. Patient is independent at home. Transportation: self/ DME/HHC: Patient denies DME or HHC Disposition Plan: Patient to discharge home with family support and follow-up plans in place Lila DENNIS, RN, CM
[2018-05-18] MEDS: Senna/Docusate Sodium 1 Tablet PO (14:12)
[2018-05-18 19:59] LABS: Vancomycin, Trough Level 11.7 ug/mL (5.0-15.0)
[2018-05-18 20:28] VITALS: BP 123/76; PULSE 93; RESP 16; TEMP 37.5; O2SAT 100
[2018-05-18] MEDS: Zolpidem Tartrate 5 MG Tablet ORAL (21:24)
[2018-05-19] MEDS: oxyCODONE 5 MG Tablet PO ×3 (02:45→17:12)
[2018-05-19] MEDS: Ondansetron ODT 4 MG Tablet PO ×3 (02:46→15:14)
[2018-05-19] MEDS: Naproxen 250 MG Tablet PO ×2 (02:46→14:51)
[2018-05-19 02:52] VITALS: BP 127/83; PULSE 100; RESP 18; TEMP 37.2; O2SAT 98
[2018-05-19] MEDS: Lactated Ringers 1,000 ML 150 ML IV ×3 (07:15→21:49)
--- NOTE | 2018-05-19 07:45 | PCM.PROGNOTE ---
Patient Problems: Active and Suspected Problems (Last Reviewed 04/30/17 @ 13:40 by Yana Goncalves) Abscess or cellulitis of groin (Acute) Sepsis (Acute) Subjective: HD#3 Feeling better. States occasional pain. Tylenol and Naprosyn. Prn OxyIR. States present for I and D and also for dressing change and seemed to do ok with these. May be willing to change packing, dressing at home. They will discuss this. Reviewed eventual plan for home on PO Abx for MRSA and continued dressing changes - Physical Exam General: Alert, Oriented x3, Cooperative, No apparent distress HEENT: Atraumatic Neck: Supple Skin: Incision - dressing with continued mucopurulent drainage, wick removed with wound care team and wet to dry dressing reapplied. Labia appears less edematous, edema as marked on R thigh nearly resolved (present more in dependent areas, gravity effect) Neurological: Cranial nerves II-XII grossly intact Psych/Mental Status: Normal Affect, Appropriate Vital Signs Temp Pulse Resp BP Pulse Ox 99.0 F 100 18 127/83 H 98 05/19/18 02:52 05/19/18 02:52 05/19/18 02:52 05/19/18 02:52 05/19/18 02:52 Oxygen Flow Rate (L/min) [6] 2 Oxygen Flow Rate (L/min) [4] 2 Oxygen Flow Rate (L/min) [3] 2 Oxygen Flow Rate (L/min) [1 ( 2 Initial Baseline)] Oxygen Flow Rate (L/min) 2 Oxygen Delivery Method [6] Nasal Cannula Oxygen Delivery Method [5] Nasal Cannula Oxygen Delivery Method [4] Nasal Cannula Oxygen Delivery Method [3] Nasal Cannula Oxygen Delivery Method [1 ( Nasal Cannula Initial Baseline)] Oxygen Delivery Method Room Air Weight: 95.2 kg Body Mass Index (BMI) 31.8 Intake and Output for Last 24 Hours 05/17/18 05/18/18 05/19/18 23:59 23:59 23:59 Intake Total 5812 / 5812 5467 / 5467 2293 / 2293 Output Total 1500 / 1500 700 / 700 Balance 5812 / 5812 3967 / 3967 1593 / 1593 Microbiology Past 72 Hours 05/16/18 21:45 Gram Stain - Final Wound Abcess - Pelvic Wound Culture - Final Meth. resistant Staph. aureus Laboratory Tests Past 24 Hrs 05/18/18 05/19/18 18:30 07:05 WBC Pending RBC Pending Hgb Pending Hct Pending MCV Pending MCH Pending MCHC Pending RDW Pending RDW Differential Pending Plt Count Pending Vancomycin Trough 11.7 Medical Necessity - Tobacco Use Smoking Status: Never smoker Assessment/Plan All Active Problems (Last Reviewed 04/30/17 @ 13:40 by Yana Goncalves) Abscess or cellulitis of groin (Acute) Sepsis (Acute) Maxillary sinusitis (Acute) Otitis media, left (Acute) UTI (urinary tract infection) (Resolved) HD#3 Cellulitis of R groin. S/P I and D of R labial abscess with wick in place. CT of abscess yesterday showed no persistent fluid collections, cellulitis only Erythema extending to R inner thigh marked, less edematous appearing. I and D incision with persistent purulent drainage on BID dressing changes with some improvement noted. Labia on R edematous, indurated but appears improved. MRSA positive culture. Continue Vancomycin and inc frequency. D/C Unasyn 1.5 gm IV as not likely of additional benefit pain med prn Ice pack prn as requested. Continue care. Explore education of for dressing changes outpatient
[2018-05-19 07:51] LABS: Hematocrit 32.2 % (37-47); Hemoglobin 10.8 g/dl (12.0-15.0); Mean Corp Hgb Conc 33.5 g/gl (32-36); Mean Corpuscular Volume 89.4 fL (81-99); Mean Platelet Vol. 9.9 fl (6.2-12.0); Platelet Count 213 K/mm3 (150-450); RBC Distribution Width CV 13.2 % (11.6-14.6); RBC Distribution Width SD 43.3 fl (35.1-43.9)
[2018-05-19 07:52] LABS: Scan Indicated on CBC? Y/N NO
[2018-05-19 08:22] VITALS: BP 131/97; PULSE 83; RESP 18; TEMP 36.8; O2SAT 990
[2018-05-19] MEDS: Senna/Docusate Sodium 1 Tablet PO (09:24)
[2018-05-19 14:43] VITALS: BP 121/85; PULSE 79; RESP 18; TEMP 36.8; O2SAT 100
--- NOTE | 2018-05-19 15:13 | NURSING ---
observed dressing change again with this nurse. states he feels he will be able to change the dressing at home. there continues to be less redness and edema. pt tolerated dressing change well.
[2018-05-19 19:28] LABS: Vancomycin, Trough Level 12.4 ug/mL (5.0-15.0)
[2018-05-19 20:10] VITALS: BP 129/90; PULSE 74; RESP 16; TEMP 37.1; O2SAT 100
--- NOTE | 2018-05-19 20:17 | PCM.RX.CS ---
Consult Pharmacy has been consulted to manage selected antiobiotic: Vancomycin Type of Consult: Follow-up Suspected Infection: Skin/Soft tissue Prior Doses of Antibiotics Received/Current Regimen: Currently on vancomycin 1500mg IV q8h with doses given today at 02:45, 12:45 and 20:02. Labs: Sodium 137 mmol/L (136-145) 05/18/18 05:34 Potassium 3.8 mmol/L (3.5-5.1) 05/18/18 05:34 Chloride 110 mmol/L (98-107) H 05/18/18 05:34 Carbon Dioxide 21.0 mmol/L (21.0-32.0) 05/18/18 05:34 Anion Gap 6 (5-15) 05/18/18 05:34 BUN 6 mg/dL (7-18) L 05/18/18 05:34 Creatinine 0.53 mg/dL (0.55-1.02) L 05/18/18 05:34 Est GFR (MDRD) Af Amer 167 mL/min (>60) 05/18/18 05:34 Est GFR (MDRD) Non-Af 138 mL/min (>60) 05/18/18 05:34 BUN/Creatinine Ratio 11.3 RATIO (10-20) 05/18/18 05:34 Glucose 107 mg/dL (74-106) H 05/18/18 05:34 Vancomycin Trough 12.4 ug/mL (5.0-15.0) 05/19/18 18:25 Microbiology: Microbiology 05/16/18 21:45 Wound Abcess - Pelvic Gram Stain - Final 05/16/18 21:45 Wound Abcess - Pelvic Wound Culture - Final Meth. resistant Staph. aureus 05/16/18 21:45 Wound Abcess - Pelvic Anaerobic Culture - Final No anaerobic bacteria isolated. Goal Trough: 15-20 mcg/mL Pharmacy Plan for Drug Dosing: Trough obtained this evening at 18:25 (approx 5.75 hours after the dose at 12:45) came back as 12.4 mg/L. Even though it was drawn only 5.75 hours after the previous dose, it is still short of the goal range of 15-20 mg/L. Therefore, a newly calculated dose of 2000mg IV q8h will be started. Since the next 1500mg dose has already been started at 20:02, we will start this 2000mg q8h regimen approximately 6 hours after this last 1500mg dose. Another trough will be obtained before the 4th dose of 2000mg. Since there was no SCr drawn today, one will be ordered to be drawn tomorrow morning so that pharmacy can continue to monitor the patient's renal status. Pharmacy Service will continue to monitor and adjust dosing as required. Follow-Up Labs: Trough Vancomycin Labs to be done on [date and time ordered]: 05/21/18 01:30
[2018-05-19] MEDS: Zolpidem Tartrate 5 MG Tablet ORAL (21:49)
[2018-05-19] MEDS: 0.9% NaCl Peripheral Flush Adult/Peds IV (21:49)
[2018-05-20 02:15] VITALS: BP 125/79; PULSE 70; RESP 18; TEMP 37.3; O2SAT 98
[2018-05-20] MEDS: oxyCODONE 5 MG Tablet PO ×2 (02:22→10:25)
[2018-05-20] MEDS: Ondansetron ODT 4 MG Tablet PO ×2 (02:23→10:25)
[2018-05-20 06:33] LABS: Creatinine, Serum 0.56 mg/dL (0.55-1.02); EST Glomerular Filtration Rate 130 mL/min (>60); Est Glom Filt Rate - Afr Amer 158 mL/min (>60); Estimated Creatinine Clearance 138.75 ml/min
[2018-05-20 07:29] VITALS: BP 129/93; PULSE 83; RESP 18; TEMP 36.8; O2SAT 98
--- NOTE | 2018-05-20 07:35 | PN_ITS ---
Patient Problems: Active and Suspected Problems (Last Reviewed 04/30/17 @ 13:40 by Yana Goncalves) Abscess or cellulitis of groin (Acute) Sepsis (Acute) Subjective: HD#4 Cellulitis of R groin. S/P I and D of R labial abscess with wick in place. MRSA positive culture. Doing ok. 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 Still mucopurulent drainage noted. Still feels swollen to her. Some OxyIR use along with Zofran. - Physical Exam General: Alert, Oriented x3, Cooperative, No apparent distress HEENT: Atraumatic Neck: Supple Skin: Incision - Dressing in place. Dressing changed one hr ago. No dischg on outside of dressing. R labia with erythema, induration, but decreasing prominence compared to yesterday. Very faint erythema at R inner thigh. Neurological: Cranial nerves II-XII grossly intact Psych/Mental Status: Normal Affect, Appropriate Vital Signs Temp Pulse Resp BP Pulse Ox 98.3 F 83 18 129/93 H 98 05/20/18 07:29 05/20/18 07:29 05/20/18 07:29 05/20/18 07:29 05/20/18 07:29 Oxygen Flow Rate (L/min) [6] 2 Oxygen Flow Rate (L/min) [4] 2 Oxygen Flow Rate (L/min) [3] 2 Oxygen Flow Rate (L/min) [1 ( 2 Initial Baseline)] Oxygen Flow Rate (L/min) 2 Oxygen Delivery Method [6] Nasal Cannula Oxygen Delivery Method [5] Nasal Cannula Oxygen Delivery Method [4] Nasal Cannula Oxygen Delivery Method [3] Nasal Cannula Oxygen Delivery Method [1 ( Nasal Cannula Initial Baseline)] Oxygen Delivery Method Room Air Weight: 95.2 kg Body Mass Index (BMI) 31.8 Intake and Output for Last 24 Hours 05/18/18 05/19/18 05/20/18 23:59 23:59 23:59 Intake Total 5467 / 5467 3684 / 3684 3271 / 3271 Output Total 1500 / 1500 700 / 700 Balance 3967 / 3967 2984 / 2984 3271 / 3271 Microbiology Past 72 Hours 05/16/18 21:45 Gram Stain - Final Wound Abcess - Pelvic Wound Culture - Final Meth. resistant Staph. aureus Anaerobic Culture - Final No anaerobic bacteria isolated. Laboratory Tests Past 24 Hrs 05/19/18 05/19/18 05/20/18 07:05 18:25 05:45 WBC 14.0 H RBC 3.60 L Hgb 10.8 L Hct 32.2 L MCV 89.4 MCH 30.0 MCHC 33.5 RDW 13.2 RDW Differential 43.3 Plt Count 213 MPV 9.9 Creatinine 0.56 Estim Creat Clear Calc 138.75 Est GFR (MDRD) Af Amer 158 Est GFR (MDRD) Non-Af 130 Vancomycin Trough 12.4 Medical Necessity - Tobacco Use Smoking Status: Never smoker Assessment/Plan All Active Problems (Last Reviewed 04/30/17 @ 13:40 by Yana Goncalves) Abscess or cellulitis of groin (Acute) Sepsis (Acute) Maxillary sinusitis (Acute) Otitis media, left (Acute) UTI (urinary tract infection) (Resolved) HD#4 Cellulitis of R groin. S/P I and D of R labial abscess with wick in place. MRSA positive culture. CT of abscess 05/18/18 -- no persistent fluid collections, cellulitis only Afeb. Pulse and RR wnl now. WBCs dec yesterday to 14K. Erythema extending to R inner thigh marked, less edematous appearing. I and D incision with persistent purulent drainage Labia on R edematous, indurated but appears improved and decreasing prominence. Continue Vancomycin while in hospital. Adjust dose prn Pain med prn Ice pack prn as requested. Continue care. for dressing changes outpatient -- appears comfortable Discharge planning: Supply RX written and on chart for dressing changes Bactrim DS 1 po bid for 14 d. F/U weekly in ofc for reassessment
--- NOTE | 2018-05-20 07:39 | PCM.DC ---
- Discharge Diagnoses Current Active Problems: Current Active and Chronic Problems (Last Reviewed 04/30/17 @ 13:40 by Yana Goncalves) Abscess or cellulitis of groin (Acute) Sepsis (Acute) You will use the following diet at home:: No restrictions Discharge Activity: Return to Normal Activity Return to work on:: 06/08/18 May resume sexual activity in: - - when area has fully healed. Weight Bearing Status: Weight bearing as tolerated Call your doctor if you observe: Fever of 101 or Higher, Change in Color, Uncontrolled pain, - - Increased redness and / or swelling Additional Instructions: Continue dressing changes three times daily until office appointment: call to schedule office appointment for one week from discharge. Continue antibiotics until gone. Continue Probiotic and every 3 d diflucan while on antibiotics to prevent yeast. Allergies/Adverse Reactions: Allergies latex Allergy (Verified 05/16/18 21:10) Rash Medications to take at Discharge Acetaminophen [Tylenol] 500 - 1,000 mg PO Q8H PRN PRN tablet 05/20/18 L. Acidophilus/Pectin, [place] [Acidophilus Capsule] 1 each PO DAILY #30 capsule 05/20/18 Naproxen [Naprosyn] 250 - 500 mg PO Q8H PRN PRN tablet 05/20/18 Ondansetron HCl [Zofran] 4 mg PO Q6H PRN PRN #10 tablet 05/20/18 Oxycodone [Oxyir] 5 mg PO Q6H PRN PRN 7 Days #15 tablet 05/20/18 Senna/Docusate Sodium [Senokot-S] 1 - 2 tablet PO DAILY PRN PRN #30 tablet 05/20/18 Smz/Tmp Ds [Bactrim Ds] 1 tablet PO BID 14 Days #28 tablet 05/20/18 The following prescriptions were given: Ondansetron HCl [Zofran] 4 mg PO Q6H PRN PRN #10 tablet PRN Reason: Nausea/Vomiting Oxycodone [Oxyir] 5 mg PO Q6H PRN PRN 7 Days #15 tablet PRN Reason: Severe Pain (6-10/10) L. Acidophilus/Pectin, [place] [Acidophilus Capsule] 1 each PO DAILY #30 capsule Senna/Docusate Sodium [Senokot-S] 1 - 2 tablet PO DAILY PRN PRN #30 tablet PRN Reason: Constipation Smz/Tmp Ds [Bactrim Ds] 1 tablet PO BID 14 Days #28 tablet Primary Care Physician: Noah Avery MD [Primary Care Provider] - Test Results: Test results from this visit will be discussed in further detail at your follow-up appointment, if applicable. Please Follow Up With: Italia Key MD - [phone] When: in one week, Fri or Fri (first wk in May)
--- NOTE | 2018-05-20 07:59 | DCINST_ITS ---
- Discharge Diagnoses Current Active Problems: Current Active and Chronic Problems (Last Reviewed 04/30/17 @ 13:40 by Yana Goncalves) Abscess or cellulitis of groin (Acute) Sepsis (Acute) You will use the following diet at home:: No restrictions Discharge Activity: Return to Normal Activity Return to work on:: 06/08/18 May resume sexual activity in: - - when area has fully healed. Weight Bearing Status: Weight bearing as tolerated Call your doctor if you observe: Fever of 101 or Higher, Change in Color, Uncontrolled pain, - - Increased redness and / or swelling Additional Instructions: Continue dressing changes three times daily until office appointment: call to schedule office appointment for one week from discharge. Continue antibiotics until gone. Continue Probiotic and every 3 d diflucan while on antibiotics to prevent yeast. Allergies/Adverse Reactions: Allergies latex Allergy (Verified 05/16/18 21:10) Rash Medications to take at Discharge Acetaminophen [Tylenol] 500 - 1,000 mg PO Q8H PRN PRN tablet 05/20/18 L. Acidophilus/Pectin, [place] [Acidophilus Capsule] 1 each PO DAILY #30 capsule 05/20/18 Naproxen [Naprosyn] 250 - 500 mg PO Q8H PRN PRN tablet 05/20/18 Ondansetron HCl [Zofran] 4 mg PO Q6H PRN PRN #10 tablet 05/20/18 Oxycodone [Oxyir] 5 mg PO Q6H PRN PRN 7 Days #15 tablet 05/20/18 Senna/Docusate Sodium [Senokot-S] 1 - 2 tablet PO DAILY PRN PRN #30 tablet 05/20/18 Smz/Tmp Ds [Bactrim Ds] 1 tablet PO BID 14 Days #28 tablet 05/20/18 The following prescriptions were given: Ondansetron HCl [Zofran] 4 mg PO Q6H PRN PRN #10 tablet PRN Reason: Nausea/Vomiting Oxycodone [Oxyir] 5 mg PO Q6H PRN PRN 7 Days #15 tablet PRN Reason: Severe Pain (6-10/10) L. Acidophilus/Pectin, [place] [Acidophilus Capsule] 1 each PO DAILY #30 capsule Senna/Docusate Sodium [Senokot-S] 1 - 2 tablet PO DAILY PRN PRN #30 tablet PRN Reason: Constipation Smz/Tmp Ds [Bactrim Ds] 1 tablet PO BID 14 Days #28 tablet Primary Care Physician: Noah Avery MD [Primary Care Provider] - Test Results: Test results from this visit will be discussed in further detail at your follow- up appointment, if applicable. Please Follow Up With: Italia Key MD - [phone] When: in one week, Fri or Fri (first wk in May)
--- NOTE | 2018-05-20 08:51 | PCM.RX.CS ---
Consult Pharmacy has been consulted to manage selected antiobiotic: Vancomycin Type of Consult: Follow-up Suspected Infection: Skin/Soft tissue Prior Doses of Antibiotics Received/Current Regimen: Currently on 2000mg iv q8h. Labs: Sodium 137 mmol/L (136-145) 05/18/18 05:34 Potassium 3.8 mmol/L (3.5-5.1) 05/18/18 05:34 Chloride 110 mmol/L (98-107) H 05/18/18 05:34 Carbon Dioxide 21.0 mmol/L (21.0-32.0) 05/18/18 05:34 Anion Gap 6 (5-15) 05/18/18 05:34 BUN 6 mg/dL (7-18) L 05/18/18 05:34 Creatinine 0.56 mg/dL (0.55-1.02) 05/20/18 05:45 Est GFR (MDRD) Af Amer 158 mL/min (>60) 05/20/18 05:45 Est GFR (MDRD) Non-Af 130 mL/min (>60) 05/20/18 05:45 BUN/Creatinine Ratio 11.3 RATIO (10-20) 05/18/18 05:34 Glucose 107 mg/dL (74-106) H 05/18/18 05:34 Vancomycin Trough 12.4 ug/mL (5.0-15.0) 05/19/18 18:25 Microbiology: Microbiology 05/16/18 21:45 Wound Abcess - Pelvic Gram Stain - Final 05/16/18 21:45 Wound Abcess - Pelvic Wound Culture - Final Meth. resistant Staph. aureus 05/16/18 21:45 Wound Abcess - Pelvic Anaerobic Culture - Final No anaerobic bacteria isolated. Weight used for dosin.2 kg Estimated Creatinine Clearance: ~114ml/min Goal Trough: 10-15 mcg/mL Pharmacy Plan for Drug Dosing: Per discussion with Dr. Key this AM, patient improving. Will decrease dose to 1500mg iv q8h with trough ordered for . @0930 prior to 4th dose of new regimen. Last trough was 12.4 on 05.19.18. Pharmacy Service will continue to monitor and adjust dosing as required. Follow-Up Labs: Trough Vancomycin - .. @0930 before 1000 dose
[2018-05-20] MEDS: Lactated Ringers 1,000 ML 150 ML IV (10:01)
--- NOTE | 2018-05-20 10:09 | NURSING ---
In to reassess the redness and edema to the right medial thigh/labia. dressing had been changed early this am so will plan to change again early afternoon. There is much less redness and edema noted today. patient states stave machine tender, but improving. patient states feels comfortable changing the dressings at home. probably discharge to home later today. prescription for wound care supplies is on the chart. patient will be sent home with some as well.
[2018-05-20 13:48] VITALS: BP 140/88; PULSE 73; RESP 18; TEMP 36.8; O2SAT 100
[2018-05-20 14:20] VITALS: BP 140/88; PULSE 73; RESP 18; TEMP 36.8; O2SAT 100
--- NOTE | 2018-05-20 15:35 | DS.PCM_ITS ---
Discharge Date and Diagnosis Date of Admission: 05/16/18 - cellulitis of groin, Labial abscess Date of Discharge: 05/20/18 - same, MRSA - Secondary Discharge Diagnosis Chronic Problems (Last Reviewed 04/30/17 @ 13:40 by Yana Goncalves) Pelvic pain (Chronic) Hospital Course and Treatment Consultations 05/18/18 08:12 Consult: Onc/Wound/nutritional services host Routine Comment: R vulvar cellulitis, abscess S/P I and D. MRSA Reason for Consult:: open wound persistent cellulitis Operations: - - Incision and drainage of R labial absecess in Emergency Dept. Wet to dry dressing changes Summary of Care Provided: The patient is a 37 year old female admitted through emergency dept with mild sepsis due to an abscess of the right labia. The abscess was incised and drained in the emergency department and a culture of the wound was sent. She was admitted for IV antibiotics, and was started on IV Unasyn 1.5 gm q 6 hrs and on IV Vancomycin-- given the location and appearance of the lesion, and potential for MRSA. Wet to dry dressing changes were initiated bid and then increased to tid for wound care. The wound culture was positive for MRSA. The Unasyn was discontinued. Vancomycin was continued and a higher dose regimen was given due to mild sepsis and some extension of the initial area of edema. After improvement was noted in the erythema, induration and her vital signs remained stable (including resolution of tachycardia, mild tachypnea), she was sent home on PO Bactrim DS as well as pain medication She will follow up in the office weekly until resolution of the infection, open wound. - Physical Exam Vital Signs Temp Pulse Resp BP Pulse Ox 98.3 F 73 18 140/88 H 100 05/20/18 14:20 05/20/18 14:20 05/20/18 14:20 05/20/18 14:20 05/20/18 14:20 Oxygen Flow Rate (L/min) [6] 2 Oxygen Flow Rate (L/min) [4] 2 Oxygen Flow Rate (L/min) [3] 2 Oxygen Flow Rate (L/min) [1 ( 2 Initial Baseline)] Oxygen Flow Rate (L/min) 2 Oxygen Delivery Method [6] Nasal Cannula Oxygen Delivery Method [5] Nasal Cannula Oxygen Delivery Method [4] Nasal Cannula Oxygen Delivery Method [3] Nasal Cannula Oxygen Delivery Method [1 ( Nasal Cannula Initial Baseline)] Oxygen Delivery Method Room Air Weight: 95.2 kg Body Mass Index (BMI) 31.8 Intake and Output for Last 24 Hours 05/18/18 05/19/18 05/20/18 23:59 23:59 23:59 Intake Total 5467 / 5467 3684 / 3684 4886 / 4886 Output Total 1500 / 1500 700 / 700 Balance 3967 / 3967 2984 / 2984 4886 / 4886 Microbiology Past 72 Hours 05/16/18 21:45 Gram Stain - Final Wound Abcess - Pelvic Wound Culture - Final Meth. resistant Staph. aureus Anaerobic Culture - Final No anaerobic bacteria isolated. Laboratory Tests Past 24 Hrs 05/19/18 05/20/18 18:25 05:45 Creatinine 0.56 Estim Creat Clear Calc 138.75 Est GFR (MDRD) Af Amer 158 Est GFR (MDRD) Non-Af 130 Vancomycin Trough 12.4 Discharge Activity: Return to Normal Activity Return to work on:: 06/08/18 May resume sexual activity in: - - when area has fully healed. Weight Bearing Status: Weight bearing as tolerated Call your doctor if you observe: Fever of 101 or Higher, Change in Color, Uncontrolled pain, - - Increased redness and / or swelling Home Medications: Medications to take at Discharge Acetaminophen [Tylenol] 500 - 1,000 mg PO Q8H PRN PRN tablet 05/20/18 L. Acidophilus/Pectin, [place] [Acidophilus Capsule] 1 each PO DAILY #30 capsule 05/20/18 Naproxen [Naprosyn] 250 - 500 mg PO Q8H PRN PRN tablet 05/20/18 Ondansetron HCl [Zofran] 4 mg PO Q6H PRN PRN #10 tablet 05/20/18 Oxycodone [Oxyir] 5 mg PO Q6H PRN PRN 7 Days #15 tablet 05/20/18 Senna/Docusate Sodium [Senokot-S] 1 - 2 tablet PO DAILY PRN PRN #30 tablet 05/20/18 Smz/Tmp Ds [Bactrim Ds] 1 tablet PO BID 14 Days #28 tablet 05/20/18 Following Prescrptions Were Given to Patient: Ondansetron HCl [Zofran] 4 mg PO Q6H PRN PRN #10 tablet PRN Reason: Nausea/Vomiting Oxycodone [Oxyir] 5 mg PO Q6H PRN PRN 7 Days #15 tablet PRN Reason: Severe Pain (-12/03) L. Acidophilus/Pectin, [place] [Acidophilus Capsule] 1 each PO DAILY #30 capsule Senna/Docusate Sodium [Senokot-S] 1 - 2 tablet PO DAILY PRN PRN #30 tablet PRN Reason: Constipation Smz/Tmp Ds [Bactrim Ds] 1 tablet PO BID 14 Days #28 tablet Primary Care Physician: Noah Avery MD [Primary Care Provider] - Please Follow Up With: Italia Key MD - [phone] When: in one week, Fri or Fri (first wk in May) Medical Necessity - Tobacco Use Smoking Status: Never smoker Meaningful Use Info Meaningful Use Diagnoses (Choose all that apply): None applicable
== END 2018-05-20 14:25 | disposition home or self-care (01) | DRG 854 ==
LOC: ED 22:56 → MS3 23:37
PROVIDERS: Admitting Provider Obstetrics & Gynecology; Emergency Provider Emergency Medicine; Family Provider Family Medicine; PCP Family Medicine; Referring Provider Obstetrics & Gynecology; Visit Provider Obstetrics & Gynecology
DX: A41.9 Sepsis, unspecified organism (principal); N76.4 Abscess of vulva; L03.314 Cellulitis of groin; B95.62 Methicillin resistant Staphylococcus aureus infection as the cause of diseases classified elsewhere
CPT/HCPCS: 10060; 36415; 72192; 80048; 80202; 82565; 83605; 85025; 85027; 87070; 87075; 87077; 87186; 87205; 97802; 99284; J7030; J7040; J7120; A4216; J2405

== ENCOUNTER → 2018-09-07 | Outpatient (CLI) | payer BC, SELFPAY ==
[2018-09-07 08:38] VITALS: BMI 31.8
[2018-09-07 12:49] LABS: Cholesterol 179 mg/dL (200); High Density Lipoprotein 48 mg/dL; Triglycerides 67 mg/dL; Very Low Density Lipoprotein 13 mg/dL (5-40)
== END | disposition home or self-care (01) ==
PROVIDERS: Family Provider Family Medicine; PCP Internal Medicine; Visit Provider Internal Medicine
DX: R03.0 Elevated blood-pressure reading, without diagnosis of hypertension (principal); E66.9 Obesity, unspecified
CPT/HCPCS: 36415; 80061

== ENCOUNTER → 2019-01-02 14:00 | Outpatient (CLI) | payer BC, SELFPAY ==
[2019-01-01 16:47] VITALS: BMI 31.8
[2019-01-02 14:16] LABS: Mucous, Urine 0 SEEN /hpf (<or=2+); Red Blood Cells-Urine 0 SEEN /hpf (0-5)
[2019-01-02 15:10] LABS: Color, Urine Yellow (Yellow); Glucose, Dipstick Normal (Normal); Ketone-Dipstick 50 mg/dl (Negative); Leukocyte Esterase-Dipstick 500 /ul (Negative); Nitrite-Dipstick Negative (Negative); Occult Blood-Urine 50 /ul (Negative); Protein-Dipstick 15 mg/dl (Negative); Specific Gravity, Urine 1.015 (1.002-1.030); Urine Bilirubin Dipstick Negative (Negative); Urine Clarity Sl. Cloudy (Clear); Urine Urobilinogen Normal (Normal); Urine pH 6.5 (5.0 - 8.0)
[2019-01-02 15:19] LABS: Squamous Epithelial Cells - UA 0-5 SEEN /hpf (5-10)
[2019-01-02 15:20] LABS: Bacteria RARE /hpf (None Seen); White Blood Cells >100 SEEN /hpf (0-5)
== END ==
PROVIDERS: Family Provider Family Medicine; PCP Internal Medicine; Referring Provider Physician Assistant Surgical; Visit Provider Physician Assistant Surgical
DX: R10.2 Pelvic and perineal pain (principal); R68.83 Chills (without fever)
CPT/HCPCS: 81001; 87077; 87086; 87088; 87186

== ENCOUNTER → 2020-02-09 | Outpatient (CLI) | payer BC, SELFPAY ==
[2020-02-09 16:25] VITALS: BMI 25.8
[2020-02-15 14:28] LABS: HPV APTIMA, High Risk Negative (Negative)
== END | disposition home or self-care (01) ==
PROVIDERS: PCP Internal Medicine; Visit Provider Obstetrics & Gynecology
DX: Z12.4 Encounter for screening for malignant neoplasm of cervix (principal)
CPT/HCPCS: 87624; 88175; G0145

== ENCOUNTER → 2020-03-14 15:24 | Outpatient (CLI) | payer OTHER, SELFPAY ==
[2020-03-14 15:01] VITALS: BMI 26.6
[2020-03-14 16:37] LABS: Absolute Lymphocyte Count 2.09 X10^3/uL (0.83-4.51); Absolute Neutrophil Count 5.7 X10^3/uL (2.0-7.7); Basophil# 0.05 X10^3/uL; Basophil% 0.6 % (0-1); Eosinophil# 0.14 X10^3/uL; Eosinophils% 1.6 % (0-5); Hematocrit 45.2 % (37-47); Hemoglobin 15.3 g/dL (12.0-15.0); Lymphocyte # 2.09 X10^3/ul (4.0); Lymphocyte % 24.5 % (19-41); Mean Corp Hgb Conc 33.8 g/dL (32-36); Mean Corpuscular Hgb 29.7 pg (27.0-32.0); Mean Corpuscular Volume 87.8 fL (81-99); Mean Platelet Vol. 9.8 fl (6.2-12.0); Monocyte# 0.55 X10^3/uL; Monocyte% 6.5 % (0-10); NRBC Flagged by Analyzer 0 % (0-5); Neutrophil # 5.67 X10^3/uL (2.7-7.7); Neutrophil % 66.6 % (47-70); Platelet Count 296 K/mm3 (150-450); RBC Distribution Width CV 13.2 % (11.6-14.6); RBC Distribution Width SD 42.5 fl (35.1-43.9); Red Blood Count 5.15 M/mm3 (4.2-5.4); White Blood Count 8.5 K/mm3 (4.4-11.0)
[2020-03-14 16:53] LABS: ALB/GLOB Ratio 1.3 RATIO (0.9-2.4); AST(SGOT) 18 U/L (15-37); Alanine Aminotransfer ALT/SGPT 22 U/L (13-56); Albumin, Serum 4.5 g/dL (3.2-5.0); Alkaline Phosphatase 57 U/L (45-117); Anion Gap 7 (5-15); BUN 12 mg/dL (7-18); BUN/Creat Ratio 18.2 RATIO (10-20); Calcium,Total 8.6 mg/dL (8.5-10.1); Chloride 106 mmol/L (98-107); Cholesterol 191 mg/dL (200); Creatinine, Serum 0.66 mg/dL (0.55-1.02); EST Glomerular Filtration Rate 106 mL/min (>60); Est Glom Filt Rate - Afr Amer 128 mL/min (>60); Globulin 3.5 g/dL (2.2-4.2); Glucose 87 mg/dL (74-106); High Density Lipoprotein 82 mg/dL; Potassium 3.9 mmol/L (3.5-5.1); Sodium Level 139 mmol/L (136-145); T4 Free Direct 0.93 ng/dL (0.76-1.46); Thyroid Stim Hormone (TSH) 1.87 uIU/mL (0.358-3.74); Triglycerides 53 mg/dL; Very Low Density Lipoprotein 11 mg/dL (5-40)
== END ==
PROVIDERS: PCP Internal Medicine; Referring Provider Internal Medicine; Visit Provider Internal Medicine
DX: F41.1 Generalized anxiety disorder (principal); R03.0 Elevated blood-pressure reading, without diagnosis of hypertension; N30.10 Interstitial cystitis (chronic) without hematuria
CPT/HCPCS: 36415; 80053; 80061; 84439; 84443; 85025

== ENCOUNTER → 2021-07-02 | Outpatient (CLI) | payer BC, SELFPAY ==
[2021-07-02 22:59] LABS: Mucous, Urine 0 SEEN /hpf (<or=2+)
[2021-07-02 23:08] LABS: Color, Urine Straw (Yellow); Glucose, Dipstick Normal (Normal); Ketone-Dipstick 15 mg/dl (Negative); Leukocyte Esterase-Dipstick 500 /ul (Negative); Nitrite-Dipstick Negative (Negative); Occult Blood-Urine 25 /ul (Negative); Protein-Dipstick 15 mg/dl (Negative); Urine Bilirubin Dipstick Negative (Negative); Urine Clarity Clear (Clear); Urine Urobilinogen Normal (Normal); Urine pH 6.5 (5.0 - 8.0)
[2021-07-02 23:44] LABS: Bacteria 1+ /hpf (None Seen); Red Blood Cells-Urine 0-5 SEEN /hpf (0-5); Squamous Epithelial Cells - UA 0-5 SEEN /hpf (5-10); White Blood Cells 25-50 SEEN /hpf (0-5)
== END | disposition home or self-care (01) ==
PROVIDERS: PCP Internal Medicine; Referring Provider Physician Assistant; Visit Provider Physician Assistant
DX: R30.0 Dysuria (principal)
CPT/HCPCS: 81001; 87077; 87086; 87088; 87186

== ENCOUNTER → 2021-08-20 | Outpatient (CLI) | payer BC, SELFPAY ==
--- NOTE | 2021-08-20 07:41 | BI_ITS ---
MAMMOGRAPHY - BILATERAL SCREENING REASON FOR EXAM: Female, 40 years old. Routine annual screening examination. PERTINENT HISTORY: Sister with breast cancer. TECHNIQUE: Digital bilateral breast merly (3D mammographic acquisition) in the CC and MLO projections. 2-D mediolateral oblique (MLO) and craniocaudad (CC) views of both breasts were obtained. CAD: Full Field Digital Mammography with Computer Added Detection was performed. COMPARISON: None. Baseline examination. FINDINGS: Breast Composition: The breasts are heterogeneously dense, which may obscure small masses. There are no dominant masses or suspicious calcifications. No other significant abnormalities are identified. BI/SCRN MAMM (CAD)W/MERLY BILAT IMPRESSION: Negative screening mammogram. Yearly followup mammogram recommended. (A) ASSESSMENT CATEGORY: BIRADS Category 1: Negative. A letter regarding these results will be sent to the patient by the facility within 30 days. Approximately 10% of breast cancers are not detected by mammography. A normal mammogram should not delay biopsy of a clinically suspicious abnormality. [id number] Electronically Signed: Wagner Bell MD at 9:03 EDT ,
--- NOTE | 2021-08-20 07:41 | US_ITS ---
STUDY: ULTRASOUND OF THE FEMALE PELVIS - COMPLETE REASON FOR EXAM: Female, 40 years old. aub -- heavy menses TECHNIQUE: Endovaginal. Transvaginal US was obtained to better visualized the ovaries. COMPARISON: None. FINDINGS: The uterus is anteverted and is in a midline position. The uterus measures 9.6 x 7.1 cm. There is a Nabothian cyst of the cervix. The endometrium measures 13.9 mm in thickness, and is hyperechoic. There is no demonstrated endometrial mass. Fibroids visualized. These measure 24 x 22 mm and 29 x 29 mm. I.U.D. - The patient does not have an I.U.D. The right ovary is visualized. The right ovary measures 4.4 x 3.3 cm. Cyst measures 21 mm. No follow-up required. There is no visualized right adnexal mass or complex lesion. There is normal arterial and normal venous vascularity. The left ovary is visualized. The left ovary measures 3.6 x 2.7 cm. There is no left ovarian cyst or ovarian mass. There is no visualized left adnexal mass or complex lesion. There is normal arterial and normal venous vascularity. There is no fluid in the cul-de-sac. Urinary bladder volume is 8 95 cc. US/Pelvic (Non ) IMPRESSION: There is a Nabothian cyst of the cervix. Fibroid uterus. Electronically Signed: Juwan Son MD at 17:00 EDT ,
--- NOTE | 2021-08-20 07:41 | US_ITS ---
STUDY: ULTRASOUND OF THE FEMALE PELVIS - COMPLETE REASON FOR EXAM: Female, 40 years old. aub -- heavy menses TECHNIQUE: Endovaginal. Transvaginal US was obtained to better visualized the ovaries. COMPARISON: None. FINDINGS: The uterus is anteverted and is in a midline position. The uterus measures 9.6 x 7.1 cm. There is a Nabothian cyst of the cervix. The endometrium measures 13.9 mm in thickness, and is hyperechoic. There is no demonstrated endometrial mass. Fibroids visualized. These measure 24 x 22 mm and 29 x 29 mm. I.U.D. - The patient does not have an I.U.D. The right ovary is visualized. The right ovary measures 4.4 x 3.3 cm. Cyst measures 21 mm. No follow-up required. There is no visualized right adnexal mass or complex lesion. There is normal arterial and normal venous vascularity. The left ovary is visualized. The left ovary measures 3.6 x 2.7 cm. There is no left ovarian cyst or ovarian mass. There is no visualized left adnexal mass or complex lesion. There is normal arterial and normal venous vascularity. There is no fluid in the cul-de-sac. Urinary bladder volume is 8 95 cc. US/Transvaginal Non- IMPRESSION: There is a Nabothian cyst of the cervix. Fibroid uterus. Electronically Signed: Juwan Son MD at 17:00 EDT ,
== END | disposition home or self-care (01) ==
LOC: US 07:39
PROVIDERS: PCP Internal Medicine; Visit Provider Obstetrics & Gynecology
DX: Z12.31 Encounter for screening mammogram for malignant neoplasm of breast (principal); N93.9 Abnormal uterine and vaginal bleeding, unspecified
CPT/HCPCS: 76830; 76856; 77063; 77067

== ENCOUNTER 2022-01-15 12:49 | Day surgery (SDC) | payer BC, SELFPAY ==
[2022-01-15] VITALS (8 sets, daily range): BP systolic 101–120; BP diastolic 71–92; PULSE 79–89; RESP 16–18; TEMP 37–37.6; O2SAT 99–100; BMI 28.0
[2022-01-15] MEDS: Lactated Ringers 1,000 ML 15 ML IV (13:53)
[2022-01-15 13:54] LABS: Absolute Neutrophil Count 4.3 X10^3/uL (2.0-7.7); Basophil# 0.04 X10^3/uL; Basophil% 0.6 % (0-1); Eosinophils% 1.5 % (0-5); Hematocrit 41.5 % (37-47); Hemoglobin 13.9 g/dL (12.0-15.0); Lymphocyte % 29.2 % (19-41); Mean Corp Hgb Conc 33.5 g/dL (32-36); Mean Corpuscular Hgb 28.9 pg (27.0-32.0); Mean Corpuscular Volume 86.3 fL (81-99); Mean Platelet Vol. 9.9 fl (6.2-12.0); Monocyte# 0.44 X10^3/uL; Monocyte% 6.4 % (0-10); NRBC Flagged by Analyzer 0 % (0-5); Neutrophil # 4.25 X10^3/uL (2.7-7.7); Neutrophil % 62.2 % (47-70); Platelet Count 268 K/mm3 (150-450); RBC Distribution Width CV 13.8 % (11.6-14.6); RBC Distribution Width SD 43.8 fl (35.1-43.9); Red Blood Count 4.81 M/mm3 (4.2-5.4); White Blood Count 6.8 K/mm3 (4.4-11.0)
[2022-01-15 13:57] LABS: Internal QC Validated? YES +Cl - CLEAR BKGD; Pregnancy, Urine Negative Negative
--- NOTE | 2022-01-15 14:35 | EMB_PTH ---
PATIENT: BARBIE JC LOC: [facility] U#:[id number] AGE/SX: 41/F ROOM: RE01/15/[address]: Dr. lForinda Heck MD : 1980 BED: DIS: 01/15/2022 SPEC #: [id number] RECD: 01/16/22 07:00 STATUS: BRIJESH GILL #: [id number] ROSIBEL: 01/15/22 14:[address]: Florinda Heck DEPT: SURGICAL PATHOLOGY RECD BY: Merry Garcia ENTERED: 01/16/22 09:00 SP TYPE: ENDOM BX/C VALERIY DR: Dr. Sagar Carmichael MD Tissues: Endometrium, NOS Procedures: Surgery Specimen Level IV HEADER OPERATION: Hysteroscopy, D & C Alanna PRE-OP DIAGNOSIS: Abnormal uterine bleeding, fibroid TISSUE SUBMITTED: Endometrial curettings MICROSCOPIC DIAGNOSIS Endometrial curettings: Secretory endometrium. SJ:corrine 01/18/2022 MICROSCOPIC DESCRIPTION Slides are reviewed. GROSS DESCRIPTION Received in fixative is one container labeled with the patient's name and designated endometrial curettings. The specimen consists of multiple fragments of hemorrhagic polypoid tissue that in aggregate measure 5 x 3 x 0.3 cm. The specimen is totally submitted in two cassettes. / VAL:corrine 01/16/2022 TC:4 CPT: 30766
--- NOTE | 2022-01-15 15:51 | HP.PCM_ITS ---
History and Physical Intake Visit Reasons:?4 MO FU, review meds Chief Complaint: 4m follow up menorrhagia Aprn Required: No Is patient in pain?: Yes Allergies latex Allergy (Verified 07/27/21 09:30) Rash Is last menstrual period known: Yes Post menopausal: No Patient : No : No PFSH Medical History? Acute pharyngitis, unspecified Contact dermatitis due to poison kayley Encounter for colonoscopy due to history of colon cancer History of MRSA infection Interstitial cystitis Urinary tract infection with hematuria Surgical History? Hx of section Family History? Grandfather AlcoholismFather Cancer ?? ? skin HypertensionMother Colon cancerSister Seizures Breast cancer Social History? Smoking Status:? Never smoker alcohol intake:? never substance use type:? does not use caffeine:? Yes what type of physical activity do you participate in:? none seatbelt use:? always do you feel safe at home:? Yes additional social history:? 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 she has had severe mental health side effects on hormonal contraception before so declines these interventions. she has some rectal pain with menses but no preiovus endometriosis seen at last US. History ? ? ? 3 ? Elective abortions ? Hx Para ? ? ? 3 ? Spontaneous abortions ? Hx # Term Pregnancies ? Ectopic pregnanciesA ? Hx # Pregnancies ? Multiple births ? # of living children ? Past Pregnancies Del. Date Name GA/Weeks Outcome Route Bth Weight Gen Labor Lgth Anesthesia Del Locatn Provider FOB Unknown 2009 [place] ? live - full term C- section ? Unknown 2012 [place] ? live - full term C-se ction ? Unknown 2016 Edita ? live - full term C-s ection ? ROS Const Constitutional: Denies fatigue, fever(s), headache(s), increased appetite, poor appetite, weight gain or weight loss GI GI: Reports as per HPI; Denies abdominal pain, constipation, nausea or vomiting : Reports as per HPI; Denies difficulty voiding, dysuria, hematuria, pelvic pain, urinary frequency, urinary incontinence, urinary hesitancy, urinary urgency, vaginal discharge, vaginal dryness, vaginal odor, vaginal pruritus or other Exam Const General: cooperative, healthy appearing, comfortable, no acute distress and well developed Orientation: alert HENMT Head: normal to inspection and normocephalic Ears: hearing grossly normal bilaterally and external ears normal Nose: external nose normal and nares normal Face and sinus: normal facial exam Neck Neck: normal visual inspection, no lymphadenopathy and trachea midline Thyroid: thyroid normal Resp Effort & Inspection: normal respiratory effort Musc Other: gross motor intact no deficits, full bilateral strength Skin General: no rashes or lesions noted Neuro Motor: muscle tone normal throughout Coding Level of Care Code Off vis,est,level 4 Diagnoses Abnormal uterine bleeding? N93.9 Fibroid? D21.9 Assessment and Plan Assessment and Plan (1) Abnormal uterine bleeding: ?Status:?Acute ?Comment: lysteda, nl cbc tsh ordered US. had severe mental health side effects on hormonal contraception in the past. (2) Fibroid: ?Status:?Acute ?Comment: both less than 3 cm. discussed options ablation vs hyst.? decision for ablation. had vasectomy. Plan After discussing the patient's diagnosis and treatment plan options, patient wishes to proceed with surgical management.? I have discussed with the patient the risks, benefits, and alternatives of the procedure which include but are not limited to risks of anesthesia, bleeding, infection, possible damage to bowel, bladder, or surrounding vasculature which could lead to additional surgery to evaluate any complications.? Patient agrees to procedure and wishes to proceed.? ACOG/uptodate references given for additional information regarding procedure.? UPDATE- I have seen the patient and performed any clinically relevant updates to the history and physical exam. Florinda Heck MD
--- NOTE | 2022-01-15 17:44 | PCM.OPRPT ---
Problems Associated Problem List Diagnoses (1) Abnormal uterine bleeding: (2) Fibroid: Report of Operation Date of Procedure: 01/15/22 Pre-Operative Diagnosis: see problem list Post-Operative Diagnosis: same Surgery/Procedure Performed:: d and c hysteroscopy alanna ablation Description of Surgical Findings:: nl uterine cavity cisco certified network professional: None Type of Anesthesia: Local MAC Special Medications: none Specimen's removed: emc Drains: none Estimated Blood Loss (mL): 50 Fluids Replaced: crystalloid Description of Procedure: Patient was prepped and draped in a normal sterile fashion under MAC anesthesia. A weighted speculum was placed in the vagina and the anterior lip of the cervix was grasped with a single-tooth tenaculum. A paracervical block was placed with 1% lidocaine. Cervix was progressively dilated to allow passage of a 5 mm hysteroscope. The lining was fully visualized and noted to have thickened but regular lining with no fibroids impinging on the cavity . Uterine sounded to 10.5 cm. Curettage was performed and moderate amount of tissue removed , sent to pathology. The Alanna device was opened and the cavity length was found to be 5.5 cm. Device was inserted into the uterus and balloon inflated and device deployed. Integrity of the cavity was confirmed and a 2 minute treatment cycle was completed without complication. All instruments were removed from the vagina and excellent hemostasis was noted. Patient was awoken and taken to recovery in stable condition. Grafts/Implants Used: none Complications none Admit VTE Documentation VTE Present on Admission: No VTE Mechan Device Prophylaxis: SCD's Multi Select Codes Urinary/Genital Urinary/Genital CPT Codes: 61941 Alanna/Novasure
--- NOTE | 2022-01-15 17:44 | DCINST_ITS ---
Discharge Instructions Procedure D&C Diet Discharge Diet: No restrictions Activity Discharge Activity: Return to Normal Activity, May Shower and May Take a Tub Bath (after 1 week) May resume sexual activity in: 1-2 weeks Weight Bearing Status: Weight bearing as tolerated Lifting Restrictions: none Dressing / Incision Call your doctor if you observe: Fever of 101 or Higher, Using more than 1 pad per hour, Shortness of breath and Uncontrolled pain Follow Up Care Please Follow Up With: Florinda Heck MD When: Call [phone] to schedule appointment. Test Results: Test results from this visit will be discussed in further detail at your follow- up appointment, if applicable. Discharge Plan Admission Attending Provider: Florinda Heck Primary Care Provider: Sagar Carmichael Discharge Orders/Prescriptions Prescriptions: New naproxen 250 mg tablet 250 - 500 mg PO Q8H PRN PRN (Reason: MILD PAIN) Qty: 30 1RF oxycodone-acetaminophen [Percocet] 5-325 mg tablet 1 tab PO Q6H PRN (Reason: pain) 7 Days Qty: 10 0RF No Action diphenhydramine HCl [Unisom SleepGels] 50 mg Capsule 50 mg PO QHS PRN (Reason: Sleep) Referrals / Follow Up: Sagar Carmichael MD [Primary Care Provider] - Disposition Disposition (needs filled in before D/C Order can be placed): Home, Self Care
[2022-01-15] MEDS: Lidocaine 1% (30 ml sdv) 30 ML Vial (17:49)
== END 2022-01-15 19:00 | disposition home or self-care (01) ==
LOC: SDC 12:53 → AC 12:54
PROVIDERS: PCP Internal Medicine; Referring Provider Obstetrics & Gynecology; Visit Provider Obstetrics & Gynecology
PROC: 0U5B8ZZ Destruction of Endometrium, Via Natural or Artificial Opening Endoscopic (ICD-10-PCS; CPT 58558; principal; 2022-01-15 14:20)
DX: N93.9 Abnormal uterine and vaginal bleeding, unspecified (principal)
CPT/HCPCS: 58558; 00952; 81025; 85025; 86850; 86900; 86901; 88305; J7120; J2405

== ENCOUNTER → 2022-08-23 | Outpatient (CLI) | payer BC, SELFPAY ==
--- NOTE | 2022-08-23 07:09 | BI_ITS ---
MAMMOGRAPHY - BILATERAL SCREENING REASON FOR EXAM: Female, 41 years old. Routine annual screening examination. PERTINENT HISTORY: Sister with breast cancer. TECHNIQUE: Digital bilateral breast merly (3D mammographic acquisition) in the CC and MLO projections. 2-D mediolateral oblique (MLO) and craniocaudad (CC) views of both breasts were obtained. CAD: Full Field Digital Mammography with Computer Added Detection was performed. COMPARISON: Comparison is made with prior study dated August 20, 2021. FINDINGS: Breast Composition: The breasts are heterogeneously dense, which may obscure small masses. There are no dominant masses or suspicious calcifications. Stable small benign-appearing bilateral axillary lymph nodes. No other significant abnormalities are identified. There has been no significant change since the prior study. BI/SCRN MAMM (CAD)W/MERLY BILAT IMPRESSION: Stable bilateral screening mammogram. Yearly follow-up mammogram recommended. (A) ASSESSMENT CATEGORY: BIRADS Category 2: Benign. A letter regarding these results will be sent to the patient by the facility within 30 days. Approximately 10% of breast cancers are not detected by mammography. A normal mammogram should not delay biopsy of a clinically suspicious abnormality. [id number] Electronically Signed: Wagner Bell MD at 8:40 EDT ,
== END | disposition home or self-care (01) ==
LOC: OPBI 07:08
PROVIDERS: PCP Internal Medicine; Referring Provider Obstetrics & Gynecology; Visit Provider Obstetrics & Gynecology
DX: Z12.31 Encounter for screening mammogram for malignant neoplasm of breast (principal); Z80.3 Family history of malignant neoplasm of breast
CPT/HCPCS: 77063; 77067

== ENCOUNTER → 2022-09-02 | Outpatient (CLI) | payer BC, SELFPAY ==
--- NOTE | 2022-09-02 16:26 | US_ITS ---
EXAM: US PELVIS TRANSABDOMINAL AND TRANSVAGINAL, COMPLETE CLINICAL INDICATION: AUB TECHNIQUE: Transabdominal and transvaginal pelvic ultrasound was performed with grayscale and color Doppler imaging. Transvaginal imaging was used for better evaluation of the endometrium and adnexa. COMPARISON: No relevant prior studies available. FINDINGS: UTERUS/CERVIX: Intramural leiomyoma measuring 1.7 cm left body of the uterus. Anteverted. The uterus measures 13.6 x 6.2 x 3.0 cm. The endometrial stripe measures 0.7 cm in thickness. RIGHT OVARY: Follicle measuring 1.9 cm right ovary. Blood flow is present in the right ovary. The right ovary measures 4.1 x 3.4 x 2.6 cm. LEFT OVARY: Probable corpus luteum measuring 1.5 cm left ovary. Blood flow is present in the left ovary. The left ovary measures 2.7 x 2.8 x 1.7 cm. FREE FLUID: None. BLADDER: Unremarkable as visualized. Wall is normal thickness for degree of distention. US/Pelvic w/ Transvaginal IMPRESSION: 1. Intramural leiomyoma measuring 1.7 cm left body of the uterus. 2. No significant abnormality identified. Electronically Signed: Dustin Lima MD at 3:14 EDT ,
== END | disposition home or self-care (01) ==
LOC: US 16:26
PROVIDERS: PCP Internal Medicine; Referring Provider Obstetrics & Gynecology; Visit Provider Obstetrics & Gynecology
DX: N93.9 Abnormal uterine and vaginal bleeding, unspecified (principal)
CPT/HCPCS: 76830; 76856

== ENCOUNTER → 2023-01-31 | Outpatient (CLI) | payer BC, SELFPAY | END | disposition home or self-care (01) | LOC: LAB 13:25 | PROVIDERS: PCP Internal Medicine; Referring Provider Obstetrics & Gynecology; Visit Provider Obstetrics & Gynecology | DX: Z01.812 Encounter for preprocedural laboratory examination (principal) | CPT/HCPCS: 36415; 86850; 86900; 86901 ==

== ENCOUNTER 2023-02-11 06:17 | Day surgery (SDC) | payer BC, SELFPAY ==
[2023-01-30 15:56] LABS: Hematocrit 42.5 % (37-47); Hemoglobin 14.2 g/dL (12.0-15.0); Mean Corp Hgb Conc 33.4 g/dL (32-36); Mean Corpuscular Hgb 30.8 pg (27.0-32.0); Mean Corpuscular Volume 92.2 fL (81-99); Mean Platelet Vol. 10.3 fl (6.2-12.0); Platelet Count 309 K/mm3 (150-450); RBC Distribution Width CV 13.7 % (11.6-14.6); Red Blood Count 4.61 M/mm3 (4.2-5.4); White Blood Count 5.9 K/mm3 (4.4-11.0)
[2023-01-30 16:17] LABS: Magnesium 2.3 mg/dL (1.6-2.6)
[2023-02-11] VITALS (12 sets, daily range): BP systolic 101–135; BP diastolic 64–85; PULSE 59–97; RESP 12–18; TEMP 36.1–37.1; O2SAT 97–100; BMI 24.9
--- NOTE | 2023-02-11 06:51 | HP.PCM_ITS ---
History and Physical Date of Admission: 02/11/23 Intake Visit Reasons: [facility] Developer Evangelist Required: No Is patient in pain?: No Allergies latex Allergy (Verified 01/27/23 13:54) Rash Medications diphenhydramine HCl 50 mg capsule (Unisom SleepGels) 50 mg PO QHS PRN Sleep 01/08/22 [History Confirmed 01/27/23] naproxen 500 mg tablet 500 mg PO BID-TID PRN pain #30 tabs 09/06/22 [Rx Confirmed 01/27/23] PFSH Medical History Acute pharyngitis, unspecified Anxiety Contact dermatitis due to poison kayley Encounter for colonoscopy due to history of colon cancer History of MRSA infection Interstitial cystitis Non-smoker Urinary tract infection with hematuria Wears contact lenses Surgical History Hx of section Hx of cystoscopy S/P endometrial ablation Family History Grandfather AlcoholismFather Cancer skin HypertensionMother Colon cancerSister Seizures Breast cancer Social History Smoking Status: Never smoker alcohol intake: never substance use type: does not use caffeine: Yes what type of physical activity do you participate in: none seatbelt use: always do you feel safe at home: Yes additional social history: Justice Barbosa 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 she has adenomyosis and fibroids. 13.6 cm uterus with adenomyosis and fibroids. Female Reproductive History Menopausal Symptoms: No hot flashes, No night sweats, No difficulty concentrating and No change in libido History 3 Elective abortions Hx Para 3 Spontaneous abortions Hx # Term Pregnancies Ectopic pregnancies Hx # Pregnancies Multiple births # of living children Past Pregnancies Del. Date Name GA/Weeks Outcome Route Bth Weight Infant Gen Labor Lgth Anesthesia Del Locatn Provider FOB Unknown 2009 [place] live - full term C-s ection Unknown 2012 Jany live - full term C-sec tion Unknown 2016 Edita live - full term C-se ction ROS Const Constitutional: Reports as per HPI; Denies fatigue, increased appetite, poor appetite, night sweats, weight gain or weight loss Cardio Card: Denies chest pain Resp Resp: Denies cough or dyspnea GI GI: Reports as per HPI; Denies abdominal pain, bloating, constipation, nausea or vomiting : Reports as per HPI and other; Denies difficulty voiding, dysuria, hematuria, hot flashes, nipple discharge, pelvic pain, prolapse symptoms, urinary frequency, urinary incontinence, urinary urgency, vaginal discharge, vaginal dryness, vaginal odor or vaginal pruritus Skin Skin/Breast: Denies changing lesions, breast mass, breast pain, breast skin changes or nipple discharge Psych Psych: Denies anxiety, change in libido, depression or difficulty concentrating Exam Const General: cooperative, healthy appearing, comfortable, no acute distress and well developed Orientation: alert HENMT Head: normal to inspection and normocephalic Ears: hearing grossly normal bilaterally and external ears normal Nose: external nose normal and nares normal Face and sinus: normal facial exam Neck Neck: normal visual inspection, no lymphadenopathy and trachea midline Thyroid: thyroid normal Resp Effort & Inspection: normal respiratory effort Musc Other: gross motor intact no deficits, full bilateral strength Skin General: no rashes or lesions noted Neuro Motor: muscle tone normal throughout Coding Level of Care Code No Charge Diagnoses Abnormal uterine bleeding N93.9 Fibroid D21.9 Assessment and Plan Assessment and Plan (1) Abnormal uterine bleeding: Status: Acute Comment: suspect adenomyosis. offered orilissa vs myfembree. plan LAVHBS in january, will prescribe percocet PRN each cycle until then if needed. failed ablation and lysteda, nl cbc tsh in past, reordered US. had severe mental health side effects on hormonal contraception in the past. (2) Fibroid: Status: Acute Comment: both less than 3 cm. discussed options ablation vs hyst. decision for ablation. had vasectomy. Plan After discussing the patient's diagnosis and treatment plan options, patient wishes to proceed with surgical management. I have discussed with the patient the risks, benefits, and alternatives of the procedure which include but are not limited to risks of anesthesia, bleeding, infection, possible damage to bowel, bladder, or surrounding vasculature which could lead to additional surgery to evaluate any complications. Patient agrees to procedure and wishes to proceed. ACOG/uptodate references given for additional information regarding procedure. UPDATE- I have seen the patient and performed any clinically relevant updates to the history and physical exam. Florinda Heck MD
[2023-02-11] MEDS: Lactated Ringers 1,000 ML 40 ML IV (06:55)
[2023-02-11] MEDS: dexAMETHasone 4 MG/ML Vial 8 MG IV (06:56)
[2023-02-11] MEDS: Enoxaparin 40 MG/0.4 ML Syringe SC (06:57)
[2023-02-11] MEDS: Magnesium 1 GM over 15 mins IV (06:57)
[2023-02-11] MEDS: Celecoxib 200 MG Capsule 400 MG PO (06:57)
[2023-02-11] MEDS: Phenazopyridine 95 MG Tablet 190 MG PO (06:58)
[2023-02-11] MEDS: Gabapentin 600 MG Tablet PO (06:58)
[2023-02-11] MEDS: Acetaminophen 500 MG Tablet 1000 MG PO ×2 (06:59→13:22)
[2023-02-11] MEDS: Scopolamine 1mg/72hr Patch 1 PATCH TD (06:59)
[2023-02-11 07:19] LABS: Internal QC Validated? YES +Cl - CLEAR BKGD; Pregnancy, Urine Negative Negative; Record Kit Lot#,Urine Preg HCG0000667200
[2023-02-11 07:27] LABS: Bedside Glucose 109 mg/dL (74-106)
[2023-02-11 07:39] LABS: Absolute Lymphocyte Count 1.28 X10^3/uL (0.83-4.51); Absolute Neutrophil Count 3.5 X10^3/uL (2.0-7.7); Basophil# 0.04 X10^3/uL; Basophil% 0.8 % (0-1); Eosinophil# 0.08 X10^3/uL; Eosinophils% 1.5 % (0-5); Hemoglobin 13.6 g/dL (12.0-15.0); Lymphocyte # 1.28 X10^3/ul (0.83-4.51); Lymphocyte % 24.3 % (19-41); Mean Corpuscular Hgb 31.1 pg (27.0-32.0); Mean Corpuscular Volume 91.5 fL (81-99); Mean Platelet Vol. 9.9 fl (6.2-12.0); Monocyte# 0.37 X10^3/uL; NRBC Flagged by Analyzer 0 % (0-5); Neutrophil # 3.48 X10^3/uL (2.7-7.7); Neutrophil % 66.2 % (47-70); Platelet Count 245 K/mm3 (150-450); RBC Distribution Width CV 13.8 % (11.6-14.6); RBC Distribution Width SD 46.7 fl (35.1-43.9); Red Blood Count 4.37 M/mm3 (4.2-5.4); White Blood Count 5.3 K/mm3 (4.4-11.0)
--- NOTE | 2023-02-11 08:30 | HYST_PTH ---
PATIENT: BARBIE JC [place] [facility] [id number] AGE/SX: 42/F ROOM: RE02/11/[address]: Dr. Florinda Heck MD : 1980 BED: DIS: 02/11/2023 SPEC #: [id number] RECD: 02/11/23 12:18 STATUS: BRIJESH REEron #: [id number] ROSIBEL: 02/11/23 08:[address]: Florinda Heck DEPT: SURGICAL PATHOLOGY RECD BY: Merry Garcia ENTERED: 02/11/23 12:58 SP TYPE: HYSTERECT OTHR DR: Dr. Sagar Carmichael MD Tissues: Uterus, NOS Procedures: Surgery Specimen Level V HEADER OPERATION: ERAS, hysterectomy, LAVH, bilateral salpingectomy PRE-OP DIAGNOSIS: Abnormal uterine bleeding, fibroid TISSUE SUBMITTED: Uterus, cervix, bilateral fallopian tubes MICROSCOPIC DIAGNOSIS Uterus, cervix, bilateral fallopian tubes, hysterectomy and bilateral salpingectomy: Cervix - chronic inflammation. Endometrium - secretory endometrium. Myometrium - intramural leiomyoma (2.0 cm in diameter). - Focal superficial adenomyosis. Bilateral fallopian tubes - no pathologic diagnosis. Left paratubal cyst. SJ:rg 02/12/2023 MICROSCOPIC DESCRIPTION Slides are reviewed. GROSS DESCRIPTION Received in fixative is one container labeled with the patient's name and designated uterus, cervix, bilateral fallopian tubes. The specimen consists of a hysterectomy specimen consisting of uterus with cervix and attached bilateral fallopian tubes. The uterus with cervix weighs 119 gm and measures 10.0 x 7.0 x 4.0 cm. The serosal surface is beard, glistening. The ectocervical mucosa is unremarkable. The external os is oval and patulous in contour. The endocervical canal measures 3.5 cm in length and the endocervical mucosa is beard, glistening and unremarkable. Sections of the cervix reveal a few cysts filled with mucoid material. The triangular endometrial cavity measures 5.0 cm in length and up to 2.5 cm in width. The endometrium is beard, glistening without any mass lesion and measures up to 0.3 cm in thickness. Sections of the uterine wall reveal a beard, nodular mass in the posterior uterine wall measuring 2.0 cm in diameter. Sections of this mass reveals beard whorled cut surfaces without areas of hemorrhage, necrosis or cystic degeneration. Uninvolved uterine wall measures up to 2.0 cm in thickness. The right fallopian tube measures 7.0 cm in length and up to 0.6 cm in diameter. The fimbrial end is identified. Sections reveal unremarkable cut surfaces. The left fallopian tube is similar appearance to right and measures 6.5 cm in length and 0.6 cm in diameter. A paratubal cyst is noted measuring 0.8 cm in greatest dimension. Head Track Coach sections are submitted in nine cassettes as follows: 1 - anterior cervix, 2 - posterior cervix, 3 & 4 - anterior uterine wall, 5 & 6 - posterior uterine wall, 7 - nodular mass, 8??right fallopian tube, 9 - left fallopian tube and paratubal cyst. / SJ:rg 02/11/2023 TC:1 CPT: 68477
--- NOTE | 2023-02-11 08:36 | PCM.OPRPT ---
Problems Associated Problem List Diagnoses (1) Fibroid: (2) Generalized anxiety disorder: (3) Abnormal uterine bleeding: Report of Operation Date of Procedure: 02/11/23 Pre-Operative Diagnosis: see A/P Post-Operative Diagnosis: same Surgery/Procedure Performed:: LAVHBS Description of Surgical Findings:: dense vesicouterine adhesions pelvic congestion syndrome enlarged uterus Surgeon: Florinda Heck mainspring fabrication supervisor: George Fernández Type of Anesthesia: General Special Medications: hemoblast Specimen's removed: uterus, tubes Drains: mar Estimated Blood Loss (mL): 300 Fluids Replaced: crystalloid Description of Procedure: Patient received preoperative antibiotics and SCDs were on preoperatively. Patient was taken back to the operating room and placed in the dorsal lithotomy position. General anesthesia was induced and patient was prepped and draped in normal sterile fashion. Uterine manipulator was placed inside the uterus and Mar catheter placed in the bladder. The umbilicus was grasped with towel clamps and an intraumbilical incision was made after injecting with quarter percent Marcaine and a Veress needle entered into the abdomen confirmed to be intra-abdominal with a low opening pressure. Abdomen was insufflated with CO2 gas and the Veress needle removed and the 5 mm trocar was placed under direct visualization without complication. Right and left lower quadrants were transilluminated and injected with quarter percent Marcaine and 5 mm ports placed under direct visualization. Pelvis was well visualized see operative findings for additional information. Bilateral fallopian tubes were identified and transected with the LigaSure device across the mesosalpinx to the level of the utero-ovarian ligament which was also transected with the LigaSure device. The broad ligament was opened up by transecting the round ligament bilaterally and skeletonizing the uterine vessels bilaterally and creating a bladder flap using the LigaSure device. The uterine arteries were transected bilaterally with good visualization of the bladder and the ureters were seen to be inferior lateral to the operative area. Attention was then paid to the vaginal portion of the procedure and the cervix was grasped with Lacy clamps and circumferentially injected with dilute vasopressin. A circumferential incision was made and the vaginal mucosa was mobilized off posteriorly and the cul-de-sac entered into sharply and a longneck speculum placed. The anterior cul-de-sac was then identified and entered into sharply. The uterosacral ligaments were clamped cut and suture ligated with 0 Monocryl bilaterally followed by the cardinal ligaments which were clamped cut and suture ligated bilaterally with 0 Monocryl. The uterus serially descended and was removed without difficulty. Pelvic sidewall pedicles were checked and noted to have excellent hemostasis. The vaginal mucosa was reapproximated incorporating the posterior peritoneum. This was reapproximated using 0 Vicryl [id number] sutures. Excellent hemostasis was noted. The pelvis and cul-de-sac were well visualized and no significant active bleeding noted but some raw areas were seen on the peritoneum and therefore hemoblast was applied. Pressure was taken down and the areas visualized and noted to have some breakthrough bleeding, therefore they were cauterized and more product placed. pressure again was taken down and excellent hemostasis seen. All ports were removed under direct visualization without complication and the abdomen was desufflated of air. The instruments were removed from the abdomen and the vaginal sweep was negative. Port sites on the abdomen were closed with 4-0 Monocryl interrupted sutures and Steri's and windows were applied. She was awoken and taken recovery in stable condition. Grafts/Implants Used: none Procedure Start Time: 09:15 Procedure Stop Time: 11:28 Complications none Admit VTE Documentation VTE Present on Admission: No VTE Mechan Device Prophylaxis: SCD's VTE Pharm Prophylaxis ordered?: Yes Procedures Urinary/Genital 52xxx-59xxx: 48392 LAVH+BS/O <250gr Uterus
--- NOTE | 2023-02-11 08:37 | DCINST_ITS ---
Discharge Instructions Diet Discharge Diet: No restrictions Activity May resume sexual activity in: 6 weeks Weight Bearing Status: Full weight bearing Dressing / Incision Call your doctor if your incision/area has: Continuous Slow Oozing, Sudden Increased Bleeding, Increased Pain/ Swelling, Increased Redness and Foul Smelling Discharge Call your doctor if you observe: Fever of 101 or Higher, Using more than 1 pad per hour, Shortness of breath, Chest pain and Uncontrolled pain Suture Line Care: Avoid Pulling/Pushing and Avoid Pinching/Bending Remove Dressing in: 1 week (if present) Cleanse incision/area with: Soap & Water and Keep Dressing Clean & Dry Follow Up Care Please Follow Up With: Florinda Heck MD When: Call to make an appointment with your doctor for a postop visit in 2 and 6 weeks. Test Results: Test results from this visit will be discussed in further detail at your follow- up appointment, if applicable. Discharge Plan Admission Attending Provider: Florinda Heck Primary Care Provider: Sagar Carmichael Discharge Orders/Prescriptions Prescriptions: New oxycodone-acetaminophen [Percocet] 5-325 mg tablet 1 tab PO Q6H PRN (Reason: pain) 7 Days Qty: 10 0RF naproxen [naproxen] 500 mg tablet 500 mg PO BID PRN PRN (Reason: Pain) Qty: 30 1RF No Action naproxen 500 mg tablet 500 mg PO BID-TID PRN (Reason: pain) Qty: 30 2RF Rx Instructions: administer with food or milk diphenhydramine HCl [Unisom SleepGels] 50 mg Capsule 50 mg PO QHS PRN (Reason: Sleep) oxycodone-acetaminophen 5-325 mg tablet 1 tab PO PRN PRN (Reason: pain) Patient Comments: TAKE 1 TABLET BY MOUTHHEVERY 6 HOURS NEEDEDOFOR PAIN FOR 7 BOGDAN Referrals / Follow Up: Sagar Carmichael MD [Primary Care Provider] - Disposition Disposition (needs filled in before D/C Order can be placed): Home, Self Care
[2023-02-11] MEDS: Cefazolin 2 GM in 0.9% Normal Saline (100mL Bag) 100 ML IV (08:42)
[2023-02-11] MEDS: Bupivacaine 0.25% 30 ML Vial (09:20)
[2023-02-11] MEDS: Vasopressin 20 UNITS/ML Vial (10:00)
[2023-02-11] MEDS: Ondansetron 4 MG/2 ML Vial IV (11:22)
[2023-02-11] MEDS: Ketorolac 30 MG/ML Syringe IV (11:48)
[2023-02-11] MEDS: oxyCODONE 5 MG Tablet PO (14:19)
[2023-02-11 14:22] LABS: Hematocrit 43.6 % (37-47); Hemoglobin 14.2 g/dL (12.0-15.0); Mean Corp Hgb Conc 32.6 g/dL (32-36); Mean Corpuscular Hgb 30.1 pg (27.0-32.0); Mean Corpuscular Volume 92.6 fL (81-99); Mean Platelet Vol. 10.1 fl (6.2-12.0); Platelet Count 279 K/mm3 (150-450); RBC Distribution Width CV 13.8 % (11.6-14.6); Red Blood Count 4.71 M/mm3 (4.2-5.4); White Blood Count 12.8 K/mm3 (4.4-11.0)
[2023-02-11] MEDS: Lactated Ringers 1,000 ML 999 ML IV (15:43)
== END 2023-02-11 17:24 | disposition home or self-care (01) ==
LOC: SDC 06:17 → AC 06:17
PROVIDERS: PCP Internal Medicine; Referring Provider Obstetrics & Gynecology; Visit Provider Obstetrics & Gynecology
PROC: 0UT9FZZ Resection of Uterus, Via Natural or Artificial Opening With Percutaneous Endoscopic Assistance (ICD-10-PCS; CPT 58552; principal; 2023-02-11 08:05)
DX: N93.9 Abnormal uterine and vaginal bleeding, unspecified (principal); N80.03 Adenomyosis of the uterus; F41.1 Generalized anxiety disorder; Z86.14 Personal history of Methicillin resistant Staphylococcus aureus infection; Z87.440 Personal history of urinary (tract) infections; D21.9 Benign neoplasm of connective and other soft tissue, unspecified
CPT/HCPCS: 58552; 00840; 36415; 81025; 82962; 83735; 85025; 85027; 86850; 86900; 86901; 88307; J7120; J2405; J3475

== ENCOUNTER → 2023-08-29 | Outpatient (CLI) | payer BC, SELFPAY ==
--- NOTE | 2023-08-29 08:20 | BI_ITS ---
MAMMOGRAPHY - BILATERAL SCREENING 3-D TOMOSYNTHESIS REASON FOR EXAM: Female, 42 years old. breast cancer screening PERTINENT HISTORY: No significant family history. TECHNIQUE: 2-D mammograms and 3-D Tomosynthesis of the breast (s) were performed. CAD was performed. COMPARISON: 08/23/2022 FINDINGS: The breast composition is Extermely dense tissue. Scattered benign calcifications are seen. No dense spiculated masses or suspicious microcalcifications are identified. No architectural distortion is identified. There is no skin thickening or retraction. There has been no significant change since the prior study. BI/SCRN MAMM (CAD)W/MERLY BILAT IMPRESSION: No mammographic signs of malignancy. Routine yearly mammograms recommended. ASSESSMENT CATEGORY: BIRADS Category 1: Negative. A letter regarding these results will be sent to the patient by the facility within 30 days. FOLLOW UP RECOMMENDATION: Yearly follow up mammogram recommended. (A) Approximately 10% of breast cancers are not detected by mammography. A normal mammogram should not delay biopsy of a clinically suspicious abnormality. Electronically Signed: Blaise Tracey MD at 8:52 EDT ,
== END | disposition home or self-care (01) ==
LOC: OPBI 08:19
PROVIDERS: PCP Internal Medicine; Referring Provider Obstetrics & Gynecology; Visit Provider Obstetrics & Gynecology
DX: Z12.31 Encounter for screening mammogram for malignant neoplasm of breast (principal)
CPT/HCPCS: 77063; 77067

== ENCOUNTER → 2024-01-21 | Outpatient (CLI) | payer BC, SELFPAY ==
[2024-01-21 15:34] LABS: Absolute Lymphocyte Count 1.71 X10^3/uL (0.83-4.51); Absolute Neutrophil Count 3.6 X10^3/uL (2.0-7.7); Basophil# 0.06 X10^3/uL; Eosinophil# 0.09 X10^3/uL; Eosinophils% 1.5 % (0-5); Hematocrit 41.8 % (37-47); Hemoglobin 13.8 g/dL (12.0-15.0); Lymphocyte # 1.71 X10^3/ul (0.83-4.51); Lymphocyte % 29.4 % (19-41); Mean Corpuscular Hgb 30.3 pg (27.0-32.0); Mean Corpuscular Volume 91.9 fL (81-99); Mean Platelet Vol. 9.6 fl (6.2-12.0); Monocyte# 0.37 X10^3/uL; Monocyte% 6.4 % (0-10); NRBC Flagged by Analyzer 0 % (0-5); Neutrophil # 3.59 X10^3/uL (2.7-7.7); Neutrophil % 61.7 % (47-70); Platelet Count 270 K/mm3 (150-450); RBC Distribution Width CV 12.8 % (11.6-14.6); RBC Distribution Width SD 42.9 fl (35.1-43.9); Red Blood Count 4.55 M/mm3 (4.2-5.4); White Blood Count 5.8 K/mm3 (4.4-11.0)
[2024-01-21 16:11] LABS: ALB/GLOB Ratio 1.3 RATIO (0.9-2.4); AST(SGOT) 11 U/L (15-37); Alanine Aminotransfer ALT/SGPT 21 U/L (13-56); Albumin, Serum 4.1 g/dL (3.2-5.0); Alkaline Phosphatase 45 U/L (45-117); Anion Gap 3 (5-15); BUN 11 mg/dL (7-18); BUN/Creat Ratio 16.1 RATIO (10-20); Calcium,Total 8.9 mg/dL (8.5-10.1); Chloride 108 mmol/L (98-107); Cholesterol 175 mg/dL (200); Creatinine, Serum 0.68 mg/dL (0.55-1.02); EST Glomerular Filtration Rate 100 mL/min (>60); Est Glom Filt Rate - Afr Amer 121 mL/min (>60); Globulin 3.1 g/dL (2.2-4.2); Glucose 92 mg/dL (74-106); High Density Lipoprotein 77 mg/dL; Potassium 4.8 mmol/L (3.5-5.1); Protein, Total 7.2 g/dL (6.4-8.2); Sodium Level 138 mmol/L (136-145); Triglycerides 61 mg/dL; Very Low Density Lipoprotein 12 mg/dL (5-40)
== END | disposition home or self-care (01) ==
LOC: BIMLAB 14:33
PROVIDERS: PCP Internal Medicine; Referring Provider Internal Medicine; Visit Provider Internal Medicine
DX: Z00.00 Encounter for general adult medical examination without abnormal findings (principal)
CPT/HCPCS: 36415; 80053; 80061; 85025

== ENCOUNTER 2024-05-12 08:31 | Day surgery (SDC) | payer BC, SELFPAY ==
[2024-05-12] VITALS (8 sets, daily range): BP systolic 102–130; BP diastolic 64–85; PULSE 68–86; RESP 16; TEMP 36.5–37.3; O2SAT 98–100; BMI 24.5
--- NOTE | 2024-05-12 09:00 | PRE.ANES_ITS ---
ASA Classification* ASA Classification ASA Classification: 1 Assessment & Plan Anesthesia* Anesthesia Assessment Anesthesia Assessment: Discussed sedation and/or anesthesia options, risks, benefits, and alternatives with patient/parents/legal guardian/POA. Questions invited. The patient/parents/legal guardian/POA seems to understand and agrees to proceed with anesthesia plan. Reviewed the physical assessment, medical history, allergy history and patient home medications list prior to surgery/procedure/anesthetic and documented any changes. Performed airway and anesthesia risk assessments. Anesthesia Type Anesthesia Type: MAC History Source History Obtained from:: Patient and Chart Anesthesia Focused Assessment* Temperature: 99.1 F Pulse Rate: 80 Blood Pressure: 130/82 Respiratory Rate: 16 Pulse Ox: 100 Oxygen Delivery Method: Room Air Airway Assessment Mouth opens: >3 cm Mallampati Score: I Teeth Condition: Caps/Crowns (Patient has a couple crowns on molars. They are tight.) Neck Range of motion (ROM): Full ROM Focused Labs Anesthesia Preop lab: CBC WBC 5.8 K/mm3 (4.4-11.0) 01/21/24 14:34 01/21/24 RBC 4.55 M/mm3 (4.2-5.4) 01/21/24 14:34 01/21/24 Hgb 13.8 g/dL (12.0-15.0) 01/21/24 14:34 01/21/24 Hct 41.8 % (37-47) 01/21/24 14:34 01/21/24 Plt Count 270 K/mm3 (150-450) 01/21/24 14:34 01/21/24 CHEMISTRY Potassium 4.8 mmol/L (3.5-5.1) 01/21/24 14:34 01/21/24 Sodium 138 mmol/L (136-145) 01/21/24 14:34 01/21/24 Magnesium 2.3 mg/dL (1.6-2.6) 01/30/23 13:40 01/30/23 BUN 11 mg/dL (7-18) 01/21/24 14:34 01/21/24 Creatinine 0.68 mg/dL (0.55-1.02) 01/21/24 14:34 01/21/24 Glucose 92 mg/dL (74-106) 01/21/24 14:34 01/21/24 POC Glucose 109 mg/dL (74-106) H 02/11/23 06:51 02/11/23 TSH 1.87 uIU/mL (0.358-3.74) 03/14/20 15:25 COAG PT 12.6 SECONDS (11.7-14.9) 04/22/16 09:25 Urine Test Negative Negative 02/11/23 06:33 02/11/23 Tst Clinic Negative 07/02/21 14:56 07/02/21 Pre-Assessment Diagnosis/Proposed Procedure Planned Operative Procedure(s): COLONOSCOPY Anesthesia History Anesthesia History - medical affairs specialist: Anesthesia History - medical affairs specialist Hx Hospitalization No 05/10/24 17:31 Any Problems With Anesthesia Yes: DR WOLFF TOLD PT HE 05/10/24 17:31 GAVE 3X AMT TO GET PT ASLEEP Cholinesterase deficiency No 05/10/24 17:31 You/Your Family Experience No 05/10/24 17:31 fever (hyperthermia) with Relationship Recent Exposure to Contagious No 05/12/24 08:51 Disease Does patient have nerve No 05/10/24 17:31 stimulator Patient instructed to have device shut off --Does patient have Pacemaker No 05/12/24 08:51 or ICD? When Was Last Pacemaker Check QUESTION #4 FULL TEXT: You/Your Family Experience fever (hyperthermia) with Anesthesia Last Oral Intake Last Oral intake: Last Oral Intake NPO since 06:45 05/12/24 08:51 Meds taken in AM with sips of No 05/12/24 08:51 water? Meds patient instructed to take am of surgery Any additional information?: Yes NPO since: 06:45 (Patient had water at 6:45 AM.) PONV PONV - medical affairs specialist: PONV - medical affairs specialist Female Yes 05/10/24 17:31 HX of Motion Sickness Yes 05/10/24 17:31 HX of N/V After Surgery No 05/10/24 17:31 Non-Smoker Yes 05/10/24 17:31 Duration of Surgery greater No 05/10/24 17:31 than 60 minutes Number of Risk Factors 3 05/10/24 17:31 PONV Score Moderate Risk 05/10/24 17:31 Height & Weight Height & Weight: Anesthesia: Height & Weight Height 5 ft 7 in 05/12/24 08:51 Weight: 71 kg 05/12/24 08:51 Body Mass Index (BMI) 24.5 05/12/24 08:51 Respiratory Assessment Respiratory Assessment - medical affairs specialist: Respiratory Tract Infection Hx - medical affairs specialist Hx Respiratory Tract Infection No 05/10/24 17:31 STOP Sleep Apnea STOP Sleep Apnea - medical affairs specialist: STOP Sleep Apnea - medical affairs specialist Hx Hypertension No 05/10/24 17:31 Hx Sleep Apnea No 05/10/24 17:31 CPAP No 02/11/23 11:40 BIPAP Do you snore loudly (louder No 05/10/24 17:31 than talking or can be heard Do you often feel tired/ No 05/10/24 17:31 fatigued/ sleepy during daytime? Has anyone observed you stop No 05/10/24 17:31 breathing during sleep? STOP Results Negative 05/10/24 17:31 QUESTION #5 FULL TEXT : Do you snore loudly (louder than talking or can be heard through closed doors)? Tobacco Use History Tobacco Use History - medical affairs specialist: Tobacco Use History - medical affairs specialist Tobacco Use Smoking Status Never smoker 05/10/24 17:31 Hx Tobacco Use No 05/10/24 17:31 Years Smoking Packs Smoked per Day Smoking Cessation Date was within the last 15 years Hx Smoking Cessation Date Hx Smoking Cessation Counseling Hematologic Medial History Hematologic Hx - medical affairs specialist: Hematologic Medical Hx - referral manager Hx of Blood Transfusion No 05/10/24 17:31 Hx of Transfusion in last 3 No 05/10/24 17:31 Months Date of Last Transfusion (if within last 3 months) Ever experience any problems No 05/10/24 17:31 with transfusion(s)? Specify any problems Hx of Preganancy in last 3 No 05/10/24 17:31 Months Nurse Filling Out Transfusion MGRIFFITH 05/10/24 17:31 & Questions: Date: 05/10/24 05/10/24 17:31 Time: 17:33 05/10/24 17:31 Patient unable to answer at this time (ie. confused, unrespo /Reproduction History /Reproductive History - medical affairs specialist: /Reproductive Hx- medical affairs specialist Hx Now No 05/10/24 17:31 Gestational Age (in weeks): EDC: Hx Hx Para Hx Section SAB No 05/10/24 17:31 PFS Medical History (Updated 05/12/24 @ 09:[address] Brenden Barreto MD) Encounter for colonoscopy due to history of colonic polyp Alcohol use Rash Preventative health care Wears contact lenses Anxiety Non-smoker Acute pharyngitis, unspecified Contact dermatitis due to poison kayley Urinary tract infection with hematuria Interstitial cystitis History of MRSA infection Home Medications ?Medication ?Instructions ?Recorded ?Last Taken ?Type diphenhydramine HCl 50 mg/30 mL 25 mg PO QHS PRN sleep 05/10/24 05/11/24 History oral liquid Allergy/AdvReac Type Severity Reaction Status Date / Time latex Allergy Rash Verified 05/12/24 08:50 Family History Grandfather Alcoholism Father Cancer skin Hypertension Mother Colon cancer Sister Seizures Breast cancer Surgical History History of colonoscopy S/P laparoscopic assisted vaginal hysterectomy (LAVH) History of hysteroscopy S/P endometrial ablation Hx of cystoscopy Hx of section Social History adopted: No household members: spouse number of children: 3 current occupational status: employed 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 pets and animals: Yes (1) pets and animals: dog(s) sexually active: Yes Smoking Status: Never smoker alcohol intake: current alcohol intake frequency: holidays/special occasions only substance use type: does not use caffeine: Yes (4-5) Type: carbonated beverages and coffee what type of physical activity do you participate in: running and weight training frequency: 5-6 times per week seatbelt use: always do you feel safe at home: Yes additional social history: Henriquejim Barbosa 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
--- NOTE | 2024-05-12 09:30 | HP.PCM_ITS ---
HPI - General General Date of Admission: 05/12/24 Date of Service: 05/12/24 HPI Narrative BARBIE JC, is a 43 F who presents [facility] Medical History Encounter for colonoscopy due to history of colonic polyp Alcohol use Rash Preventative health care Wears contact lenses Anxiety Non-smoker Acute pharyngitis, unspecified Contact dermatitis due to poison kayley Urinary tract infection with hematuria Interstitial cystitis History of MRSA infection Home Medications ?Medication ?Instructions ?Recorded ?Last Taken ?Type diphenhydramine HCl 50 mg/30 mL 25 mg PO QHS PRN sleep 05/10/24 05/11/24 History oral liquid Allergy/AdvReac Type Severity Reaction Status Date / Time latex Allergy Rash Verified 05/12/24 08:50 Family History Grandfather Alcoholism Father Cancer skin Hypertension Mother Colon cancer Sister Seizures Breast cancer Surgical History History of colonoscopy S/P laparoscopic assisted vaginal hysterectomy (LAVH) History of hysteroscopy S/P endometrial ablation Hx of cystoscopy Hx of section Social History adopted: No household members: spouse number of children: 3 current occupational status: employed 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 pets and animals: Yes (1) pets and animals: dog(s) sexually active: Yes Smoking Status: Never smoker alcohol intake: current alcohol intake frequency: holidays/special occasions on ly substance use type: does not use caffeine: Yes (4-5) Type: carbonated beverages and coffee what type of physical activity do you participate in: running and weight training frequency: 5-6 times per week seatbelt use: always do you feel safe at home: Yes additional social history: HenriqueMuna Barbosa 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 [employer] Constitutional Constitutional: Denies fatigue, fever(s), poor appetite, weight gain or weight loss Gastrointestinal Gastrointestinal: Denies belching, bloating, change in bowel habits, change in stool character, chewing difficulty, coffee ground emesis, constipation, crayon sorting machine feeder mping, diarrhea, dyspepsia, dysphagia, early satiety, excessive flatus, fecal incontinence, heartburn, hematemesis, hematochezia, hemorrhoids, loose stools, melena, nausea, odynophagia, rectal bleeding, tenesmus, vomiting or weight changes Vital Signs Vital Signs Vital Signs: 05/12/24 08:51 05/12/24 08:51 05/12/24 09:21 Temperature 99.1 F 99.1 F Temperature Source Temporal Pulse Rate 80 80 Respiratory Rate 16 16 Respiratory Pattern Normal Blood Pressure 130/82 H 130/82 H Blood Pressure Mean 98 Blood Pressure Source Monitor Blood Pressure Position Semi-Fowlers Blood Pressure Location Left Arm Pulse Ox 100 100 Oxygen Delivery Method Room Air Room Air Weight Weight: 156 lb 8.451 oz Body Mass Index (BMI) 24.5 Physical Exam Const alert, oriented x3, no apparent distress and healthy appearing General Appearance: cooperative GI normal to inspection, nondistended, normoactive bowel sounds, soft to palpation, non-tender and non-distended Percussion: normal to percussion Rectal Exam: deferred Assessment & Plan Assessment/Plan (1) Family hx of colon cancer: PLAN: Assessment and Plan Assessment and Plan (1) Preventative health care: Status: Acute Plan: This is a 43 yo female pt here today for establishment with [facility] for screening colonoscopy. Pt mother was diagnosed with colon cancer in her early 50s. Pt has been having colonoscopies every 5-7 years since she was in her 20s. Last colonoscopy was in 2017 and was normal. She will be scheduled for a colonoscopy today. -Colonoscopy -f/u after procedure (2) Family hx of colon cancer: Status: Acute
--- NOTE | 2024-05-12 09:38 | PCM.POST.ANE ---
Anesthesia: Postop Eval I Current Vital Signs Temperature: 97.7 F Pulse Rate: 70 Blood Pressure: 102/64 Respiratory Rate: 16 Pulse Ox: 98 Oxygen Delivery Method: Room Air Assessment Airway patent: Yes Spontaneous unlabored respirations: Yes Mental status: Awake and Calm nausea: No Vomiting: No Anesthesia Complication: No Fluid Hydration Crystalloid volume administer (ml): 30 Total IV fluid infused: 30 Progress Note Anesthesia document: Postop Eval 1 completed: Yes
--- NOTE | 2024-05-12 10:07 | OP.CCLET_ITS ---
05/12/2024 Sagar Carmihcael MD [address] [place] [address] [place] [address] Re : Colonoscopy procedure for Brooke Magana Dear Dr. Carmichael This procedure was performed on Sunday, May 12, 2024. My impressions and recommendations are as follows: Impressions : - Preparation of the colon was poor. - Stool in the entire examined colon. - No specimens collected. Recommendations : - Discharge patient to home. - Resume previous diet. - Continue present medications. - Repeat colonoscopy in 3 years because the bowel preparation was poor. My findings are described in the full procedure note, which is enclosed. If I can be of further assistance, please feel free to contact me at . Sincerely, Brent Davis, 05/12/2024 10:06:55 AM This report has been signed electronically.
--- NOTE | 2024-05-12 10:07 | OP.COLON_ITS ---
Patient Name: Brooke Magana Procedure Date: 05/12/2024 9:38 AM Date of : 1980 Age: 43 Procedure: Colonoscopy Indications: Screening in patient at increased risk: Family history of 1st-degree relative with colorectal cancer Providers: Brent Davis DO Referring MD: Sagar Carmichael MD Medicines: Monitored Anesthesia Care Patient Profile: This is a 43 year old female. Refer to note in patient chart for documentation of history and physical. Last Colonoscopy: 5 years ago. Complications: No immediate complications. Procedure: Pre-Anesthesia Assessment: - Prior to the procedure, a History and Physical was performed, and patient medications and allergies were reviewed. The patient is competent. The risks and benefits of the procedure and the sedation options and risks were discussed with the patient. All questions were answered and informed consent was obtained. Patient identification and proposed procedure were verified by the physician in the pre-procedure area. Mental Status Examination: alert and oriented. Airway Examination: normal oropharyngeal airway and neck mobility. Respiratory Examination: clear to auscultation. CV Examination: normal. Prophylactic Antibiotics: The patient does not require prophylactic antibiotics. Prior Anticoagulants: The patient has taken no anticoagulant or antiplatelet agents. ASA Grade Assessment: II - A patient with mild systemic disease. After reviewing the risks and benefits, the patient was deemed in satisfactory condition to undergo the procedure. The anesthesia plan was to use monitored anesthesia care (MAC). Immediately prior to administration of medications, the patient was re-assessed for adequacy to receive sedatives. The heart rate, respiratory rate, oxygen saturations, blood pressure, adequacy of pulmonary ventilation, and response to care were monitored throughout the procedure. The physical status of the patient was re-assessed after the procedure. After I obtained informed consent, the scope was passed under direct vision. Throughout the procedure, the patient's blood pressure, pulse, and oxygen saturations were monitored continuously. The colonoscope was introduced through the anus and advanced to the cecum, identified by appendiceal orifice and ileocecal valve. The colonoscopy was performed without difficulty. The patient tolerated the procedure well. The quality of the bowel preparation was poor. The ileocecal valve was photographed. Scope In: 9:45:39 AM Scope Withdrawal Time 0 hours 7 minutes 17 seconds Scope Out: 9:57:43 AM Total Procedure Duration Time 0 hours 12 minutes 4 seconds Findings: The perianal and digital rectal examinations were normal. Stool was found in the entire colon. Impression: - Preparation of the colon was poor. - Stool in the entire examined colon. - No specimens collected. Recommendation: - Discharge patient to home. - Resume previous diet. - Continue present medications. - Repeat colonoscopy in 3 years because the bowel preparation was poor. Procedure Code(s): --- Professional --- 21978, Colonoscopy, flexible; diagnostic, including collection of specimen(s) by brushing or washing, when performed (separate procedure) CPT copyright 2021 [employer]. All rights reserved. The codes documented in this report are preliminary and upon fire information officer review may be revised to meet current compliance requirements. Brent Davis, 05/12/2024 10:06:55 AM This report has been signed electronically. Number of Addenda: 0 Note Initiated On: 05/12/2024 9:38 AM
--- NOTE | 2024-05-12 14:10 | POSTOPAN2_ITS ---
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 Spontaneous unlabored Yes 05/12/24 10:04 CLIP LOADING [email or web address] respirations Mental status Awake,Calm 05/12/24 10:04 CLIP LOADING [email or web address] nausea No 05/12/24 10:04 CLIP LOADING [email or web address] Vomiting No 05/12/24 10:04 CLIP LOADING [email or web address] Anesthesia Postop Eval I: Fluid Summary Crystalloid volume administer 30 05/12/24 10:04 CLIP LOADING [email or web address] (ml) Colloids volume administered ( ml) Blood Product volume administered (ml) Total IV fluid infused 30 05/12/24 10:04 CLIP LOADING [email or web address] Anesthesia Postop Eval I: Summary Notes Anesthesia Complication No 05/12/24 10:04 CLIP LOADING [email or web address] Anesthesia Complication Comment: Post-operative progress note Anesthesia: Postop Eval II Evaluation Mental status: Awake Pain Level: 1 nausea: No Vomiting: No
--- NOTE | 2024-05-12 14:10 | PCM.POSTANE2 ---
Anesthesia Postop Eval I Sum Postop Eval Completion status Anesthesia document: Postop Eval 1 completed: Yes Anesthesia Postop Eval I Summary Anesthesia Postop Eval I Summary: Anesthesia Postop Eval I: Assessment Summary Airway patent Yes 05/12/24 10:04 [employer]OR [email or web address] Spontaneous unlabored Yes 05/12/24 10:04 [email or web address] respirations Mental status Awake,Calm 05/12/24 10:04 [email or web address] nausea No 05/12/24 10:04 [email or web address] Vomiting No 05/12/24 10:04 [email or web address] Anesthesia Postop Eval I: Fluid Summary Crystalloid volume administer 30 05/12/24 10:04 [email or web address] (ml) Colloids volume administered ( ml) Blood Product volume administered (ml) Total IV fluid infused 30 05/12/24 10:04 [email or web address] Anesthesia Postop Eval I: Summary Notes Anesthesia Complication No 05/12/24 10:04 [employer]OR [email or web address] Anesthesia Complication Comment: Post-operative progress note Anesthesia: Postop Eval II Evaluation Mental status: Awake Pain Level: 1 nausea: No Vomiting: No
== END 2024-05-12 10:40 | disposition home or self-care (01) ==
LOC: EN 08:31 → AC 08:32
PROVIDERS: PCP Internal Medicine; Referring Provider Internal Medicine; Visit Provider Internal Medicine Gastroenterology
PROC: 0DJD8ZZ Inspection of Lower Intestinal Tract, Via Natural or Artificial Opening Endoscopic (ICD-10-PCS; CPT 45378; principal; 2024-05-12 09:40)
DX: Z12.11 Encounter for screening for malignant neoplasm of colon (principal); Z90.710 Acquired absence of both cervix and uterus; Z80.0 Family history of malignant neoplasm of digestive organs
CPT/HCPCS: 45378; A4216; J2405